=== PATIENT | male | born 1965 | race Caucasian/White ===

== ENCOUNTER 2020-05-25 10:46 | Emergency (ER) | payer BC, SELFPAY ==
[2020-05-25 11:00] VITALS: BP 137/95; PULSE 101; RESP 16; TEMP 37.3; O2SAT 95; BMI 27.8
--- NOTE | 2020-05-25 11:21 | HMH.EDUTC ---
[facility] [place] Clinical Impression: Exposure to COVID-19 virus Disposition: Home, Self-Care Condition on Discharge: Good Instructions: Preventing the Spread of Coronavirus Discharge Instructions Additional Instructions: Drink plenty of fluids. Take tylenol for pain or fever. Follow up with your regular doctor. GO TO THE ER FOR ANY WORSENING SYMPTOMS Referrals: Khari Her MD [Primary Care Provider] - Forms: Work/School Release Time of Disposition: 11:23 Medical Decision Making - Medical Records Medical records reviewed: No: I reviewed the patient's medical records. - Ladarius Inquiry Pt receiving controlled substance: No Vital Signs: 05/25/20 11:00 05/25/20 11:24 Temperature 99.1 F 99.1 F Temperature Source Oral Pulse Rate 101 H Pulse Rate [Right Brachial] 101 H Respiratory Rate 16 16 Blood Pressure 137/95 H Blood Pressure [Right Arm] 137/95 H Blood Pressure Mean [Right Arm] 109 Blood Pressure Source [Right Arm] Automatic Cuff Blood Pressure Position [Right Arm] Sitting 02 Sat by Pulse Oximetry 95 Oxygen Delivery Method Room Air Orders (Tests/Meds): ORDERS Category Date Time Status Covid-19 Nasal PCR Sendout [facility]uri Routine Lab 05/25/20 11:00 Received [facility] [place] H[place] - General Stated complaint: possible covid exposure Time Seen by Provider: 05/25/20 11:21 Mode of Arrival: Ambulatory Source of Information: Patient Limitations: No Limitations Description of Symptoms (Recalled from Triage Doc. by RN): PATIENT REQUESTING COVID TEST D/T POSSIBLE EXPOSURE; DENIES SYMPTOMS HEENT Symptoms (Recalled from RN notes): No Resp Symptoms (Recalled from RN notes): No Skin Symptoms (Recalled from RN notes): No MS Symptoms (Recalled from RN notes): No Functional Status (Recalled from RN notes): WNL - History of Present Illness Provider Complaint: He needs to be tested for covid due to being exposed. - Related Data Allergies Allergy/AdvReac Type Severity Reaction Status Date / Time No Known Allergies Allergy Verified 05/25/20 11:13 - Worker's Comp Is this a Worker's Comp case?: No [facility] History - Hepatitis A Screen Drug use history?: No High risk sexual behaviors?: No History of sexually transmitted infection?: No Currently employed?: No Childcare worker?: No Do you have indoor plumbing?: Yes Do you have electricity?: Yes Attestation statement:: This patient has been screened for Hepatitis A risk factors. I have reviewed the patient's past medical history: Yes - Social History Alcohol Intake: never Occupational Status: other ROS Obtained: Yes All systems reviewed & no additional complaints - Constitutional Constitutional: Reports system reviewed and no additional complaints, except as docu - Eyes Eyes: Reports system reviewed and no additional complaints, except as docu - ENT Ears, Nose, Mouth, and Throat: Reports system reviewed and no additional complaints, except as docu - Cardiovascular Cardiovascular: Reports system reviewed and no additional complaints, except as docu - Respiratory Respiratory: Yes system reviewed and no additional complaints, except as docu - Gastrointestinal Gastrointestingal: Reports: system reviewed and no additional complaints, except as docu Physical Exam - General General appearance: alert, in no apparent distress - Head Head exam: atraumatic, normocephalic, normal inspection - Eye Eye exam: Present: normal appearance, PERRL, EOMI - ENT ENT exam: Present: normal exam, normal oropharynx, mucous membranes moist, TM's normal bilaterally, normal external ear exam - Neck Neck exam: Present: normal inspection, full ROM, trachea midline. Absent: meningismus, lymphadenopathy - Chest Chest inspection: Present: normal inspection, symmetric chest wall rise. Absent: tenderness - Respiratory Respiratory exam: Present: normal lung sounds bilaterally. Absent: respiratory distress - Cardiovascular Cardiovasc
[2020-05-25 11:24] VITALS: BP 137/95; PULSE 101; RESP 16; TEMP 37.3; O2SAT 95
[2020-05-26 13:39] LABS: Covid-19 Nasal PCR Sendout Lex NOT DETECTED
== END 2020-05-25 11:26 | disposition home or self-care (01) ==
PROVIDERS: Emergency Provider Nurse Practitioner Family; PCP Internal Medicine
DX: Z20.828 Contact with and (suspected) exposure to other viral communicable diseases (principal)
CPT/HCPCS: 99201; U0004

== ENCOUNTER 2020-06-04 11:32 | Emergency (ER) | payer BC, SELFPAY ==
--- NOTE | 2020-06-04 12:09 | HMH.EDUTC ---
[facility] [place] Disposition Clinical Impression: Exposure to COVID-19 virus Disposition: Home, Self-Care Condition on Discharge: Good Instructions: Preventing the Spread of Coronavirus Discharge Instructions Additional Instructions: Drink plenty of fluids. Take tylenol for pain or fever. Take the medications as directed. Follow up with your regular doctor. GO TO THE ER FOR ANY WORSENING SYMPTOMS Don't start the azithromycin unless you start getting sick. Prescriptions: Ondansetron [Zofran 4mg ODT] 4 mg PO Q8HP PRN #9 tab.rapdis PRN Reason: Nausea Transmission Status: Received by [facility] # Azithromycin [Z-Holden 250mg Tab*] 250 mg PO UD DOSE PK #6 tab Transmission Status: Received by [facility] # Referrals: Khari Her MD [Primary Care Provider] - Time of Disposition: 12:27 Medical Decision Making - Medical Records Medical records reviewed: No: I reviewed the patient's medical records. - Ladarius Inquiry Pt receiving controlled substance: No Vital Signs: 06/04/20 12:13 06/04/20 12:33 Temperature 98.3 F 98.3 F Temperature Source Oral Oral Pulse Rate 117 H Pulse Rate [Radial] 117 H Respiratory Rate 14 14 Blood Pressure 129/99 H Blood Pressure [Right Arm] 129/99 H Blood Pressure Mean [Right Arm] 109 Blood Pressure Source Automatic Cuff Blood Pressure Source [Right Arm] Automatic Cuff Blood Pressure Position Sitting Blood Pressure Position [Right Arm] Sitting 02 Sat by Pulse Oximetry 94 L Oxygen Delivery Method Room Air Room Air Orders (Tests/Meds): ORDERS Category Date Time Status Covid-19 Nasal PCR Sendout Amauri Stat Lab 06/04/20 12:[address] [facility] [place] HPI - General Stated complaint: possible covid exposure Time Seen by Provider: 06/04/20 12:09 - History of Present Illness Provider Complaint: He was exposed to covid last week. He denies any symptoms, but he is worried about it becaues he has a history of asthma and getting bad bronchitis when he does get sick. - Related Data Previous Rx's Medication Instructions Recorded Azithromycin [Z-Holden 250mg Tab*] 250 mg PO UD DOSE PK #6 tab 06/04/20 Ondansetron [Zofran 4mg ODT] 4 mg PO Q8HP PRN #9 tab.rapdis 06/04/20 Allergies Allergy/AdvReac Type Severity Reaction Status Date / Time No Known Allergies Allergy Verified 05/25/20 11:13 [facility] History - Hepatitis A Screen Attestation statement:: This patient has been screened for Hepatitis A risk factors. I have reviewed the patient's past medical history: Yes - Social History Alcohol Intake: never Occupational Status: other ROS Obtained: Yes All systems reviewed & no additional complaints - Constitutional Constitutional: Reports system reviewed and no additional complaints, except as docu - Eyes Eyes: Reports system reviewed and no additional complaints, except as docu - ENT Ears, Nose, Mouth, and Throat: Reports system reviewed and no additional complaints, except as docu - Cardiovascular Cardiovascular: Reports system reviewed and no additional complaints, except as docu - Respiratory Respiratory: Yes system reviewed and no additional complaints, except as docu - Gastrointestinal Gastrointestingal: Reports: system reviewed and no additional complaints, except as docu Physical Exam - General General appearance: alert, in no apparent distress - Head Head exam: atraumatic, normocephalic, normal inspection - Eye Eye exam: Present: normal appearance, PERRL, EOMI - ENT ENT exam: Present: normal exam, normal oropharynx, mucous membranes moist, TM's normal bilaterally, normal external ear exam - Neck Neck exam: Present: normal inspection, full ROM, trachea midline. Absent: meningismus, lymphadenopathy - Chest Chest inspection: Present: normal inspection, symmetric chest wall rise. Absent: tenderness - Respiratory Respiratory exam: Present: normal lung sounds bilaterally. Absent: respir
[2020-06-04 12:13] VITALS: BP 129/99; PULSE 117; RESP 14; TEMP 36.8; O2SAT 94; BMI 27.8
[2020-06-04 12:33] VITALS: BP 129/99; PULSE 117; RESP 14; TEMP 36.8; O2SAT 94
[2020-06-05 14:42] LABS: Covid-19 Nasal PCR Sendout Lex NOT DETECTED
== END 2020-06-04 12:34 | disposition home or self-care (01) ==
PROVIDERS: Emergency Provider Nurse Practitioner Family; PCP Internal Medicine
DX: Z20.828 Contact with and (suspected) exposure to other viral communicable diseases (principal); J45.909 Unspecified asthma, uncomplicated
CPT/HCPCS: 99201; U0004

== ENCOUNTER → 2021-08-29 10:27 | Outpatient (CLI) | payer BC, SELFPAY ==
[2021-08-29 11:20] LABS: Hematocrit 52.2 % (42.0-52.0); Mean Corpuscular HGB Conc 32.6 g/dL (31.8-35.4); Mean Corpuscular Hemoglobin 34.8 pg (27.0-31.2); Mean Corpuscular Volume 106.9 fl (80-94); Platelet Count 348 K/mm3 (142-424); Red Blood Count 4.88 M/mm3 (4.60-6.20); Red Cell Distribution Width 13.6 % (11.5-17.5); White Blood Count 7.9 K/mm3 (4.8-10.8)
[2021-08-29 12:23] LABS: Alanine Aminotransferase 41 U/L (12-78); Albumin Level 4.3 g/dl (3.5-5.0); Albumin/Globulin Ratio 1.9 (1.1-1.8); Alkaline Phosphatase 74 U/L (38-126); Anion Gap 9.6 mEq/L (5-15); Aspartate Amino Transferase 40 U/L (17-59); Bilirubin,Total 0.7 mg/dl (0.2-1.3); Blood Urea Nitrogen 15 mg/dl (9-20); Calcium 9.7 mg/dl (8.4-10.2); Carbon Dioxide 32 mmol/L (22.0-30.0); Chloride 100 mmol/L (98-107); Chol/HDL Ratio 5.5 (1-3.5); Cholesterol 208 mg/dl (140-200); Estimated Glomerular Filt Rate 69 ml/min (>60); GFR (African American) 83 ML/MIN (>60); Globulin 2.3 g/dL (1.3-3.2); Glucose 105 mg/dl (74-100); HDL Cholesterol 38 mg/dl (40-60); Potassium 4.6 mmoL/L (3.5-5.1); Sodium 137 mmol/L (136-145); Total Protein,Serum 6.6 g/dl (6.3-8.2); Triglycerides 328 mg/dl (30-150); VLDL Cholesterol 66 mg/dL (0-40)
[2021-08-29 12:34] LABS: Direct LDL Cholesterol 130.75 mg/dL (100-129)
[2021-08-30 11:26] LABS: Testosterone,Total 450 ng/dL (264-916)
== END ==
PROVIDERS: PCP Internal Medicine; Visit Provider Internal Medicine
DX: Z00.00 Encounter for general adult medical examination without abnormal findings (principal); I10 Essential (primary) hypertension; E78.2 Mixed hyperlipidemia
CPT/HCPCS: 36415; 80053; 80061; 84403; 85014; 85018; 85048; 85049

== ENCOUNTER 2024-06-02 10:34 | Outpatient (CLI) | payer BC, SELFPAY ==
--- NOTE | 2024-06-02 10:56 | ECG_ITS ---
APPROVED REPORT Exam: Resting ECG HR:74 bpm ECG Measurements Heart Rate 74 AXES UT 179 P 62 QRSd 96 QRS 46 QT 377 T 68 QTc 404 Conclusion SINUS RHYTHM ABNORMAL ECG UNCONFIRMED REPORT Electronically signed by : Ralph Crabtree MD 06/03/2024 17:01:06
[2024-06-02 11:20] LABS: Basophils # 0.1 K/mm3 (0-0.2); Basophils % 1.4 % (0.1-2.0); Eosinophils # 0.9 K/mm3 (0.0-0.4); Eosinophils % 11.7 % (0.1-12.0); Hematocrit 44.8 % (42.0-52.0); Hemoglobin 16.1 g/dL (14.1-18.0); Lymphocytes # 2.1 K/mm3 (0.7-4.5); Lymphocytes % 26.5 % (10-50); Mean Corpuscular Hemoglobin 36.2 pg (27.0-31.2); Mean Corpuscular Volume 100.5 fl (80-94); Mean Platelet Volume 7.4 fl (7.4-10.4); Monocytes # 0.8 K/mm3 (0.1-1.0); Neutrophils % 50.4 % (37.0-80.0); Platelet Count 305 K/mm3 (142-424); Red Blood Count 4.46 M/mm3 (4.60-6.20); Red Cell Distribution Width 14.2 % (11.5-17.5); White Blood Count 7.9 K/mm3 (4.8-10.8)
[2024-06-02 11:29] LABS: Alanine Aminotransferase 59 U/L (12-78); Albumin Level 4.1 g/dl (3.5-5.0); Alkaline Phosphatase 57 U/L (38-126); Anion Gap 11.1 mEq/L (5-15); Aspartate Amino Transferase 37 U/L (17-59); Bilirubin,Total 0.8 mg/dl (0.2-1.3); Blood Urea Nitrogen 16 mg/dl (9-20); Calcium 9.6 mg/dl (8.4-10.2); Carbon Dioxide 29 mmol/L (22.0-30.0); Chloride 104 mmol/L (98-107); Estimated Glomerular Filt Rate 69 ml/min (>60); GFR (African American) 83 ML/MIN (>60); Globulin 2.1 g/dL (1.3-3.2); Glucose 99 mg/dl (74-100); Potassium 4.1 mmoL/L (3.5-5.1); Sodium 140 mmol/L (136-145); Total Protein,Serum 6.2 g/dl (6.3-8.2)
== END 2024-06-02 23:59 | disposition home or self-care (01) ==
PROVIDERS: PCP Internal Medicine; Visit Provider Otolaryngology
DX: Z01.812 Encounter for preprocedural laboratory examination (principal); Z01.818 Encounter for other preprocedural examination
CPT/HCPCS: 36415; 80053; 85025; 93005

== ENCOUNTER 2024-10-01 14:57 | Emergency (ER) | payer BC, SELFPAY ==
[2024-10-01 15:02] VITALS: BP 152/94; PULSE 103; O2SAT 94
[2024-10-01 15:04] VITALS: BP 152/94; PULSE 104; RESP 22; TEMP 36.6; O2SAT 91; BMI 31.4
--- NOTE | 2024-10-01 15:07 | ED_ITS ---
<Statement entered by Huma Arauz DO - 10/01/24 22:43> I was consulted by the BEENA, and we discussed the complexity of the problems being addressed. I approved the treatment and management plan for this patient's care in the emergency department, thus performing a substantive portion of the medical decision making. Huma Arauz DO Discharge Plan Disposition Patient Disposition: Home, Self-Care Condition: Good Prescriptions Prescriptions: New prednisone 20 mg tablet 40 mg PO DAILY 5 Days Qty: 10 0RF azithromycin 250 mg tablet See Rx Instructions .ROUTE .COMPLEX Qty: 6 0RF Rx Instructions: For 250 mg dose pack: take 500 mg today (day 1), then 250 mg for 4 days (days 2-5) No Action albuterol sulfate 2.5 mg /3 mL (0.083 %) solution for nebulization 2.5 mg continuous nebulization NEEDED PRN (Reason: Breathing Problems) Patient Comments: INHALE THE CONTENTS OF 1 VIAL VIA NEBULIZER EVERY 6 HOURS NEEDED atorvastatin 10 mg tablet 10 mg PO DAILY Patient Comments: TAKE 1 TABLET BY MOUTH EVERY EVENING fluticasone propion-salmeterol [Wixela Inhub] 500-50 mcg/dose blister with device 500 inh INHALATION DAILY albuterol sulfate 90 mcg/actuation HFA aerosol inhaler 90 mcg INHALATION DAILY Patient Comments: INHALE 2 PUFFS BY MOUTH FOUR TIMES DAILY losartan 100 mg tablet 100 mg PO DAILY fluticasone propionate 50 mcg/actuation spray,suspension 50 mcg INTRANASAL DAILY Patient Comments: SHAKE LIQUID AND USE 1 SPRAY IN EACH NOSTRIL EVERY DAY levocetirizine 5 mg tablet 5 mg PO DAILY Patient Comments: TAKE 1 TABLET BY MOUTH EVERY DAY Referrals Follow up/Referrals: Khari Her MD [Primary Care Provider] - See instructions Clinical Impressions Clinical Impression: Influenza A, Acute exacerbation of chronic obstructive pulmonary disease (COPD) Instructions Patient Instructions: DI for Chronic Obstructive Pulmonary Disease, DI for Influenza -- Adult Print Language Print Language: Kosovan Discharge ED Provider: Huma Arauz General Adult HPI General Chief complaint: Shortness of Breath/Dyspnea Stated complaint: SOA Time Seen by Provider: 10/01/24 15:01 Mode of Arrival: Ambulatory Source of Information: Patient Limitations: No Limitations History of Present Illness HPI narrative: 59-year-old male presents to the emergency department with 4 to 5-day history of cough, that is nonproductive, fatigue, congestion, shortness of air, no known sick exposure, patient admits to some chest tightness/pain, worse after coughing, denies any abdominal pain, nausea vomiting constipation diarrhea, no melena no hematochezia no hematemesis, no hemoptysis, patient denies any urinary type symptomatology. Patient has other past medical history consistent with COPD, with as needed nasal cannula, mostly at night, other past medical history consistent with current everyday smoker, hyperlipidemia, hypertension, no other history of substance use/abuse. Initial triage vitals notable for tachycardia, and oxygen saturation 91%, placed on 2 L nasal cannula improved to 95 to 96%. Onset (ago): day(s) Related Data Home Medications ?Medication ?Instructions ?Recorded ?Confirmed albuterol sulfate 2.5 mg/3 mL 2.5 mg continuous nebulization 10/01/24 10/01/24 (0.083 %) solution for nebulization NEEDED PRN Breathing Problems albuterol sulfate 90 mcg/actuation 90 mcg inhalation DAILY 10/01/24 10/01/24 aerosol inhaler atorvastatin 10 mg tablet 10 mg PO DAILY 10/01/24 10/01/24 fluticasone 500 mcg-salmeterol 50 500 inh inhalation DAILY 10/01/24 10/01/24 mcg/dose blistr powdr for inhalation (Wixela Inhub) fluticasone propionate 50 50 mcg intranasal DAILY 10/01/24 10/01/24 mcg/actuation nasal spray,suspension levocetirizine 5 mg tablet 5 mg PO DAILY 10/01/24 10/01/24 losartan 100 mg tablet 100 mg PO DAILY 10/01/24 10/01/24 Previous Rx's ?Medication ?Instructions ?Recorded azithromycin 250 mg tablet See Rx Instructions PO .COMPLEX #6 10/01/24 tabs prednisone 20 mg tablet 40 mg (2 x 20 mg) PO DAILY 5 days 10/01/24 #10 tabs Allergies Allergy/AdvReac Type Severity Reaction Status Date / Time No Known Allergies Allergy Verified 10/01/24 15:10 [facility] Disclaimer: The information contained in this section may have been updated after the patient was seen, as this information can be updated by other users. Social History Smoking Status: Current every day smoker alcohol intake: never current occupational status: employed Travel in the last 8 weeks: None Have you lived/traveled outside US in past 30 days?: No Contact w/someone who lives/traveled outside US past 30 days?: No Exposure to someone with infectious disease in past 14 days?: No Do you have a fever (greater than 100.4 F or 38 C)?: No Have you tested positive for COVID-19: No Exposed to someone with COVID-19 in past 14 days?: No Do you have a sore throat?: No Do you have a cough?: No Do you have any weakness?: No Do you have any diarrhea?: No Are you experiencing any unusual bleeding?: No Do you have any muscle aches/pain?: No Do you have any abdominal pain?: No Are you experiencing loss of taste or smell?: No ROS Obtained: Yes All systems reviewed & no additional complaints except as documented Physical Exam General General appearance: alert and in no apparent distress Head Head exam: atraumatic and normocephalic Eye Eye exam: Present PERRL and EOMI ENT ENT exam: Present mucous membranes moist Neck Neck exam: Present normal inspection Chest Chest inspection: Present normal inspection and symmetric chest wall rise Respiratory Respiratory exam: Present normal lung sounds bilaterally and other (Some mild conversational dyspnea, no air hunger, no real tachypnea, no Rales, crackles, no rhonchi); Absent respiratory distress, wheezes or stridor Cardiovascular Cardiovascular exam: Present regular rate and normal rhythm Abdominal Exam Abdominal exam: Present soft; Absent tenderness, guarding, rebound, rigidity or organomegaly Extremities Exam Extremities exam: Present normal inspection Neurological Exam Neurological exam: Present alert and oriented X3 Psychiatric Psychiatric exam: Present normal affect Skin Skin exam: Present warm and dry Medical Decision Making Medical Records Medical records reviewed: Yes I reviewed the patient's medical records. Screening: Per USPSTF and CDC recommendations, given the prevalence of disease in our region, it is our hospital?s policy to screen for HIV and viral Hepatitis for all patients aged 18 and over and those with ongoing risk factors. Ladarius Inquiry Pt receiving controlled substance: No Ladarius was queried for this patient: No Vital Signs: 10/01/24 15:02 10/01/24 15:04 10/01/24 15:30 Temperature 97.9 F Temperature Source Oral Pulse Rate 103 H 100 H Pulse Rate [Left] 104 H Respiratory Rate 22 Blood Pressure 152/94 H 140/97 H Blood Pressure [Right Arm] 152/94 H Blood Pressure Mean 117 111 Blood Pressure Mean [Right Arm] 113 Blood Pressure Source [Right Arm] Automatic Cuff Blood Pressure Position [Right Arm] Sitting 02 Sat by Pulse Oximetry 94 L 91 L 94 L Oxygen Delivery Method Room Air 10/01/24 16:00 10/01/24 16:30 Temperature Temperature Source Pulse Rate 100 H 95 H Pulse Rate [Left] Respiratory Rate Blood Pressure 119/90 127/91 H Blood Pressure [Right Arm] Blood Pressure Mean 99 106 Blood Pressure Mean [Right Arm] Blood Pressure Source [Right Arm] Blood Pressure Position [Right Arm] 02 Sat by Pulse Oximetry 94 L 94 L Oxygen Delivery Method Lab Data Lab results reviewed: Yes I reviewed the patient's lab results. Lab Results 10/01/24 15:05: WBC 9.0, RBC 4.96, Hgb 17.2, Hct 50.7, MCV 102.2 H, MCH 34.7 H, MCHC 33.9, RDW 13.1, Plt Count 263, MPV 9.3, Neut % (Auto) 78.4, Lymph % (Auto) 7.2 L, [place] % (Auto) 12.6 H, Eos % (Auto) 1.2, Baso % (Auto) 0.3, Neut # (Auto) 7.1, Lymph # (Auto) 0.7, [place] # (Auto) 1.1 H, Eos # (Auto) 0.1, Baso # (Auto) 0.0, PT 11.1, INR 0.99, D-Dimer 0.27, VBG pH 7.32, VBG pCO2 48.0, VBG pO2 36.1, VBG HCO3 24.0, VBG Total CO2 25.4, VBG O2 Saturation 67.0, VBG Base Excess -2.2, VBG Lactic Acid 2.4 H, Sodium 134 L, Potassium 4.3, Chloride 101, Carbon Dioxide 25, Anion Gap 12.3, BUN 17, Creatinine 0.90, Estimated Creat Clear 126, Estimated GFR 86, Est GFR ( Amer) 104, Glucose 131 H, Calcium 9.4, Magnesium 2.0, Total Bilirubin 0.9, AST 44, ALT 48, Alkaline Phosphatase 74, Total Creatine Kinase 104, Troponin I < 0.01, NT-Pro-B Natriuret Pep 26.8, Total Protein 7.2, Albumin 4.8, Globulin 2.4, Albumin/Globulin Ratio 2.0 H, Lipase 59, SARS-CoV-2 (PCR) Not detected, HCV Ab EDUAR w/Rflx PCR Qn Negative, HIV Ag/Ab Combo Qual Negative, Influenza A Untype (PCR) Detected A, Influenza Type B (PCR) Not detected 10/01/24 15:05 10/01/24 15:05 Orders (Tests/Meds): ED MEDICATIONS Discontinued Medications Generic Name Dose Route Start Last Admin Trade Name Freq PRN Reason Stop Dose Admin Albuterol/Ipratropium 6 ml 10/01/24 16:57 10/01/24 17:21 Ipratropium/Albuterol 3 Ml Neb IH 10/01/24 16:58 6 ml ONCE ONE Administration Methylprednisolone Sodium Succinate 125 mg 10/01/24 16:57 10/01/24 17:21 Methylprednisolone Sod Succ 125mg Vial IV 10/01/24 16:58 125 mg ONCE ONE Administration ORDERS Category Date Time Status XR chest portable Stat Exams 10/01/24 15:12 Completed CK [Creatine Kinase] Stat Lab 10/01/24 15:05 Completed Complete Blood Count Auto Diff Stat Lab 10/01/24 15:05 Completed Comprehensive Metabolic Panel Stat Lab 10/01/24 15:05 Completed D-Dimer Stat Lab 10/01/24 15:05 Completed HIV Combo Stat Lab 10/01/24 15:05 Completed Hepatitis C Ab Qual. W/ RFX Stat Lab 10/01/24 15:05 Completed Lipase Stat Lab 10/01/24 15:05 Completed Magnesium Stat Lab 10/01/24 15:05 Completed NT Pro Brain Natriuretic Pep. Stat Lab 10/01/24 15:05 Completed PT INR [Prothrombin Time INR] Stat Lab 10/01/24 15:05 Completed Rapid PCR Covid and Flu A/B Stat Lab 10/01/24 15:05 Completed Troponin I Q3H Lab 10/01/24 18:15 Ordered Troponin I Q3H Lab 10/01/24 21:15 Ordered Troponin I Stat Lab 10/01/24 15:05 Completed VBG [Venous Blood Gas] Stat RT 10/01/24 15:05 Completed Medical Decision Narrative: 59-year-old male presents to the emerged part with shortness of breath, cough congestion, differential diagnose, not limited to, COPD exacerbation, acute/new onset CHF, ACS, cardiac arrhythmia, electrolyte disturbance, acute bronchitis, pneumonia, other URI, pneumothorax. Will obtain basic laboratory studies, creatinine kinase, D-dimer, lactic acid level, lipase magnesium level proBNP PT/INR, troponin, EKG, chest x-ray, VBG, obtain rapid antigen swabs for COVID-19 and influenza. CBC is notable for elevated MCV 102.2, which is chronic VBG is notable for normal pH, venous lactic acid level elevated at 2.4, bicarb within normal limits, pO2 and pCO2 within normal limits D-dimer 0.27, negative for VTE Coags within normal limit Patient is negative for COVID-19, positive for influenza A, negative for influenza B. CMP is notable for normal troponin, normal proBNP, lipase within normal limits. I reviewed the patient's chest x-ray along the corresponding radiologic report, no acute cardiopulmonary process. Will give 6 mL DuoNeb per RT, 125 mg methylprednisone will be given IV. Oxygen saturation improved, he has no other acute complaints, he has influenza, in the setting of COPD, recommend follow-up with [facility] provider other providers as directed, I will prescribe short course of azithromycin for COPD exacerbation as well as prednisone 40 mg p.o. for 5 days. Patient voiced understand agree with current treatment plan/discharge plan. Return precautions were given. Critical Care Critical Care Time Critical Care Time: No
--- NOTE | 2024-10-01 15:12 | XR_ITS ---
FINAL REPORT CLINICAL HISTORY: SOB, CP COMPARISON: None FINDINGS: A single view of the chest was obtained. The patient is scanned in lordotic positioning. The heart size is normal. The mediastinum is normal. There is scarring noted at the lung bases. There is no focal infiltrate or edema. There are no pleural effusions. There is no pneumothorax. There is no osseous abnormality. IMPRESSION: No acute cardiopulmonary process Reviewed, Interpreted and Dictated by Camacho Mancini MD Transcribed by Julisa Hayes Authenticated and . [facility]
[2024-10-01 15:17] LABS: Basophils % 0.3 % (0.1-2.0); Coronavirus 19, PCR Not Detected (NotDetected); Eosinophils # 0.1 K/mm3 (0.0-0.4); Eosinophils % 1.2 % (0.1-12.0); Hematocrit 50.7 % (42.0-52.0); Hemoglobin 17.2 g/dL (14.1-18.0); Influenza B, PCR Not Detected (NotDetected); Lymphocytes # 0.7 K/mm3 (0.7-4.5); Lymphocytes % 7.2 % (10-50); Mean Corpuscular HGB Conc 33.9 g/dL (31.8-35.4); Mean Corpuscular Hemoglobin 34.7 pg (27.0-31.2); Mean Corpuscular Volume 102.2 fl (80-94); Mean Platelet Volume 9.3 fl (7.4-10.4); Monocytes # 1.1 K/mm3 (0.1-1.0); Monocytes % 12.6 % (1.7-9.3); Neutrophils # 7.1 K/mm3 (1.8-7.8); Neutrophils % 78.4 % (37.0-80.0); Platelet Count 263 K/mm3 (142-424); Red Blood Count 4.96 M/mm3 (4.60-6.20); Red Cell Distribution Width 13.1 % (11.5-17.5)
--- NOTE | 2024-10-01 15:18 | PC.NURSE ---
Radiology at bedside for chest x-ray
[2024-10-01 15:21] LABS: Lactate Venous 2.4 mmol/L (0.4-2.0); VBG Base Excess -2.2 mmol/L (-2.4-2.3); VBG PH 7.32 mmol/L (7.31-7.41); VBG PO2 36.1 mmol/L (28-40); VBG Total CO2 25.4 mmol/L (23-27)
[2024-10-01 15:27] LABS: Creatine Kinase 104 U/L (55-170); INR 0.99 (0.9-1.1); Lipase 59 U/L (23-300); Prothrombin Time 11.1 seconds (10.1-12.5)
[2024-10-01 15:30] VITALS: BP 140/97; PULSE 100; O2SAT 94
[2024-10-01 15:37] LABS: D-Dimer 0.27 ug/mL (0.0-0.5)
[2024-10-01 15:39] LABS: NT Pro Brain Natriuretic Pep. 26.8 pg/mL (0-125)
[2024-10-01 15:40] LABS: Troponin I < 0.01 ng/ml (0.00-0.034)
--- NOTE | 2024-10-01 15:49 | ECG_ITS ---
APPROVED REPORT Exam: Resting ECG HR:95 bpm ECG Measurements Heart Rate 95 AXES AK 182 P 70 QRSd 93 QRS 34 QT 337 T 77 QTc 390 Conclusion SINUS RHYTHM Electronically signed by : ROLDAN CONTRERAS, 10/01/2024 23:13:18
[2024-10-01 15:51] LABS: Alanine Aminotransferase 48 U/L (12-78); Albumin Level 4.8 g/dl (3.5-5.0); Alkaline Phosphatase 74 U/L (38-126); Anion Gap 12.3 mEq/L (5-15); Aspartate Amino Transferase 44 U/L (17-59); Bilirubin,Total 0.9 mg/dl (0.2-1.3); Blood Urea Nitrogen 17 mg/dl (9-20); Calcium 9.4 mg/dl (8.4-10.2); Carbon Dioxide 25 mmol/L (22.0-30.0); Chloride 101 mmol/L (98-107); Creatinine Clearance Estimated 126 mL/min (50-200); Estimated Glomerular Filt Rate 86 ml/min (>60); GFR (African American) 104 ML/MIN (>60); Globulin 2.4 g/dL (1.3-3.2); Glucose 131 mg/dl (74-100); Influenza A, PCR Detected (NotDetected); Potassium 4.3 mmoL/L (3.5-5.1); Sodium 134 mmol/L (136-145); Total Protein,Serum 7.2 g/dl (6.3-8.2)
[2024-10-01 16:00] VITALS: BP 119/90; PULSE 100; O2SAT 94
[2024-10-01 16:24] LABS: HIV Combo NEGATIVE (Negative)
[2024-10-01 16:30] VITALS: BP 127/91; PULSE 95; O2SAT 94
[2024-10-01 16:32] LABS: Hepatitis C Ab Qual. W/ RFX NEGATIVE (Negative)
[2024-10-01] MEDS: METHYLPREDNISOLONE SOD SUCC 125MG VIAL 125 MG IV (17:21)
[2024-10-01] MEDS: IPRATROPIUM/ALBUTEROL 3 ML NEB 6 ML IH (17:21)
[2024-10-01 18:01] VITALS: BP 118/72; PULSE 85; RESP 18; TEMP 36.6; O2SAT 95
[2024-10-01 19:22] LABS: Reflex Lactic Add Lactic Reflex
== END 2024-10-01 18:03 | disposition home or self-care (01) ==
PROVIDERS: Physician Assistant; Emergency Provider Emergency Medicine; PCP Internal Medicine
DX: J44.1 Chronic obstructive pulmonary disease with (acute) exacerbation (principal); J10.1 Influenza due to other identified influenza virus with other respiratory manifestations; R06.02 Shortness of breath; R05.9 Cough, unspecified; R53.83 Other fatigue; R09.81 Nasal congestion; R07.89 Other chest pain; Z72.0 Tobacco use
CPT/HCPCS: 71045; 80053; 82550; 82803; 83690; 83735; 83880; 84484; 85025; 85378; 85610; 86803; 87389; 87636; 93005; 96374; 99284; J2919; J7620

== ENCOUNTER 2025-05-28 10:16 | Outpatient (CLI) | payer BC, SELFPAY ==
--- OUTSIDE RECORDS SUMMARY | 2016-04-06 07:59 | XMS_ITS | Encounter Summary ---
[facility] Address [address] [place] [address] Care Team Providers Care C Unix Developer Name Role Phone Khari Her MD Primary Care Provider [phone] Encounter Details Date Type Department Care Team (Late st Contact Info) Description 04/06/2016 8:59 AM EDT Hospital Encounter [facility] [place] [address] Social History Tobacco Use Types Packs/Day Years Used Date Smoking Tobacco: Every Day Cigarettes Comments:Also e-cigarretes Abuse Screen Answer Date Recorded Unsafe at Home or Work/School Not on file Feels Threatened by Someone? Not on file 03/2023 Does Anyone Keep You from Co ntacting Others or Doint Things Outside the Home? Not on file 04/30/2023 Physical Sign of Abuse Present Not on file 1 Housing Stability Answer Date Recorded Current Living Arrangements Not on file 03/2023 Potentially Unsafe Housing Conditions Not on azar e 04/30/2023 Family and Community Support Answer Sha e Recorded Help with Day-to-Day Activities Not on file 04/30/2023 Lonely or Isolated Not on file 04/30/2023 Employment Answer Date Recorded Do you want help finding or keeping work or a leonid b? Not on file 04/30/2023 Disabilities Answer Date Recorded Concentrating, Remembering, or Making Decisions Difficulty Not on file 04/30/2023 Doing Errands Independently Difficulty Not on fi le 04/30/2023 Education Answer Date Recorded Help with school or training? Not on file Preferred Language Not on file 04/30/2023 Sex and Gender Information Value Date Recorded Sex Assigned at Not on file Legal Sex Male 11:22 AM EDT Gender Identity Not on file Sexual Orientation Not on file documented as of this encounter Plan of Treatment Not on file documented as of this encounter Procedures Procedure Name Priority Date/Time Associated Diagnosis Comments XR CHEST PA AND LATERAL Routine 04/06/2016 9:06 AM EDT Cough documented in this encounter Results * XR chest pa and lateral (04/06/2016 9:06 AM EDT) Narrative Molly Flores, EDITH - 04/06/2016 9:06 AM EDT Results sent to clinical pharmacy coordinator, signed report will be scanned into [employer] once available. Please see performing physicians notes. us Manoj Fuller MD IMG DIAGNOSTIC IMAGING ORDERABL ES Final Result documented in this encounter Visit Diagnoses Not on filedocumented in this encounter Care Teams C Unix Developer Relationship Specialty Start Date End Date Khari Her MD [address] [place] [address] PCP - General Pediatrics 04/06/16 documented as of this encounter
--- OUTSIDE RECORDS SUMMARY | 2025-05-28 10:24 | XMS_ITS | Clinical Summary ---
Author Organization [facility] Address [address] [place] [address] Care Team Providers Care Specialty Cook Name Role Phone Khari Her MD Primary Care Provider [phone] Allergies No known active allergies Medications PROAIR HFA 108 (90 BASE) MCG/ACT inhaler as needed. 1 6 Active albuterol (PROVENTIL) (2.5 MG/3ML) 0.083% nebulizer solution as needed. 0 6 Active omeprazole (PriLOSEC) 40 MG capsule as needed. 0 6 Active BREO ELLIPTA 100-25 MCG/INH aerosol powder daily. 1 6 Active atorvastatin (LIPITOR) 10 MG tablet daily. 1 6 Active losartan (COZAAR) 50 MG tablet daily. 0 6 Active montelukast (SINGULAIR) 10 MG tablet daily. 1 6 Active Chlorcyclizine-P seudoephed (STAHIST AD) 25-60 MG tablet Take by mouth daily. Active Umeclidinium [place] 62.5 MCG/INH aerosol powderIndication s:Chronic obstructive pulmonary disease, unspecified COPD type,Cough Inhale 1 inhaler 1 (one) time daily. 1 inhalation once a day 1 each 5 6 Active Active Problems Problem Noted Date Diagnosed Date Depression 03/30/2016 Hyperlipidemia 03/30/2016 Screening PSA (prostate specific antigen) HTN (hypertension) GERD (gastroesophageal reflux disease) Environmental and seasonal allergies Encounter for long-term (current) use of medicat ions Dyslipidemia Immunizations Immunization Administration Dates Next Due Influenza TIV (IM) 04/06/2016 Social History Tobacco Use Types Packs/Day Years Used Date Smoking Tobacco: Every Day Cigarettes Tobacco Cessation:Counseling Given: Yes Comments:Also e-cigarretes Abuse Screen Answer Date Recorded [...] on file Sexual Orientation Not on file Last Filed Vital Signs Vital Sign Reading Time Taken Comments Blood Pressure 128/88 04/06/2016 9:09 AM EDT Pulse 87 04/06/2016 9:09 AM EDT Temperature 37 C (98.6 F) 04/06/2016 9:09 AM EDT Respiratory Rate 16 04/06/2016 9:09 AM EDT Oxygen Saturation 96% 04/06/2016 9:09 AM EDT RA Inhaled Oxygen Concentration - - Weight 93 kg (205 lb) 04/06/2016 9:09 AM EDT Height 179.1 cm (5' 10.5 ) 04/06/2016 9:09 AM ED T Body Mass Index 29 04/06/2016 9:09 AM EDT Plan of Treatment Health Maintenance Due Date Last Done Comments LIPID PANEL 1964 COLOGUARD 2009 COLON CANCER SCREENING 5 YEA R SIGMOIDOSCOPY 2009 COLONOSCOPY 2009 [address] CANCER SCREENING 2009 CT COLONOGRAPHY 2009 FECAL OCCULT BLOOD TEST 2009 FIT Testing (1 year) 2009 Pneumococcal Vaccine 50+ (1 of 1 - PCV) 2014 TDAP/TD VACCINES (2 - Td or Tdap) 12/23/2020 011 ZOSTER VACCINE (2 of 2) 06/19/2022 04/24/2022 ANNUAL PHYSICAL 03/02/2023 HEPATITIS C SCREENING 03/02/2023 INFLUENZA VACCINE 02/20/2025 04/24/2022, , 04/28/2020, Additional history exists Insurance [employer] Member Subscriber Plan / Payer (Ef fective 2014-Present) Name:Andre Hatch Relation to Subscriber:Self Name:Andre Hatch Payer ID:[id number] (NAIC) Type:Not on file Address: [facility] [id number] [id number] Care Teams Specialty Cook Relationship Specialty Start Date End Date Khari Her MD [address] [place] [address] PCP - General Pediatrics 04/06/16
--- OUTSIDE RECORDS SUMMARY | 2025-05-28 10:25 | XMS_ITS | Data Portability ---
Author Organization JOAN Her MD, Main Office Address [address] [place] [address] Assessment No assessment recorded. Plan of Treatment Reminders Order Date Submit Date Provider Last Modified By Organization Details Last Modified Time Details Appointments ANNUAL EXAM 2024 03:40P Jordon Her MD Not available Not available Not available Lab lipid panel, blood 2023 024 [place] [id number] [facility], [facility] [address], [place], [address], 01/03/2024 12:02:01 TSH + free T4, serum 2023 024 [place] [id number] [facility], [address], [place], [address], 01/03/2024 12:02:01 CMP, serum or plasma 2023 024 SATISH [facility], [address], [place], [address], 09/08/2023 08:22:29 CBC w/ auto diff 2023 024 SATISH [facility], [address], [place], [address], 09/08/2023 08:22:28 PSA, serum or plasma 2023 024 SATISH [facility], [address], [place], [address], 09/08/2023 08:22:30 HbA1c (hemoglo bin A1c), blood 2023 024 SATISH [facility], [address], [place], [address], 09/08/2023 08:22:30 PSA, serum or plasma 2022 023 SATISH [facility], [address], [place], [address], 09/30/2022 09:16:42 CMP, serum or plasma 2022 023 SATISH [facility], [address], [place], [address], 09/30/2022 09:16:41 CBC w/ auto diff 2022 023 SATISH [facility], [address], [place], [address], 09/30/2022 09:16:40 urinalys is, complete 2022 023 SATISH [facility], [address], [place], [address], 10/18/2022 19:50:02 HbA1c (hemoglo bin A1c), blood 2022 023 SATISH [facility], [address], [place], [address], 09/30/2022 09:16:43 lipid panel, serum 2022 023 SATISH [facility], [address], [place], [address], 09/30/2022 09:16:42 urinalys is, complete 2021 022 [facility], [address], [place], [address], 09/03/2021 20:22:02 CMP, serum or plasma 2020 021 [place] [id number] [facility], [address], [place], [address], 08/19/2021 10:40:02 CBC w/ auto diff 2020 021 [email or web address], [address], [place], [address], 08/19/2021 10:40:02 lipid panel, serum 2020 021 [email or web address] [facility], [address], [place], [address], 08/30/2021 16:48:48 Referral otolaryn gologist referral 2023 024 SATISH Morrow MD, [address], [address], [place], [address], 09/24/2023 12:45:57 general surgeon referral 2020 021 [address] , [address], [place], [address], 05/26/2021 13:50:14 Procedures None recorded . Surgeries None recorded . Imaging LDCT, chest, for lung cancer screenin g [address] (Centralized Scheduling), [address], [place], [address], 05/08/2024 10:35:42 Medication Orders omega-3 acid ethyl esters 1 gram capsule 2023 024 [id number], [address], [id number], 09/14/2023 11:26:02 predniso ne 10 mg tablet [address] [id number], [address] [facility] [address] [place], [id number], 10/29/2024 14:15:08 nicotine 21 mg/24 hr daily transder mal patch [address] [facility] #[id number], [address] [facility] [address] [place], [id number], 09/14/2023 11:07:19 albutero l sulfate 2.5 mg/3 mL (0.083 %) solution for nebuliza tion 2020 021 [facility] #96123, [address] [facility] [address] [place], [id number], 05/26/2021 11:14:41 albutero l sulfate HFA 90 mcg/actu ation aerosol inhaler 2020 021 [facility]73740, [address] [facility] [address] [place], [id number], 05/26/2021 11:14:40 losartan 100 mg tablet [email or web address] [facility] #00614, [address] [facility] [address] [place], [id number], 10/10/2020 21:27:28 Patient TargetsNo targets recorded. Patient Instructions Encounter Date Encounter Id Patient Instructions Last Modified By Organization Details Last Modified Time 08/13/2020 [id number] 1. Increase Losartan to 100 mg by mouth daily. 2. Laboratory studies. 3. Continue respiratory medications. 4. Keep appointment for colonoscopy as scheduled. 5. Followup as scheduled and as needed. [email or web address] Not available 10/10/2020 22:18:20 05/26/2021 [id number] 1. Referral to Kostas Garcia Gen. surgery. 2. Follow up as needed. Not available 05/26/2021 11:14:48 09/02/2021 [id number] 1. Reviewed laboratory studies. 2. Add Hgb A1c to labs if possible. 3. Follow Mediterranean diet. Discussed similarities with diabetic diet and encouraged to limit Simple carbohydrates. Choose complex carbohydrates and olive oil as primary source of dietary fat. 4. Discussed importance of regular physical exercise activity. Start slowly with his COPD and gradually increase as tolerated. 5. Continue current medications. 6. He is up-to-date on colorectal cancer screening. 7. Followup in 6 months and as needed. Not available 09/11/2021 23:24:12 09/29/2022 [id number] high cholesterol : care instructions Not available 09/29/2022 13:45:42 1. Laboratory studies today. 2. Reviewed medication list and updated. 3. Strongly encouraged to stop smoking cigarettes. Severity of his COPD was emphasized. He has tried medications and nicotine delivery systems in the past. He has stopped for brief periods in the past and is seriously considering attempting complete abstinence again. 4. Schedule LDCT of chest due to his qualifying history of cigarette use for lung malignancy screening. In light Study performed at [facility]. 5. Encouraged to gradually reduce weight through healthy lifestyle habits. 6. Mediterranean diet discussed including symptoms suspect dietary choices. 7. Discussed recommendation of 150 min. of moderate intensity exercise weekly. With his respiratory disease recommended gradually increasing activity such as walking. 8. Recommend checking pneumonia vaccination status at pharmacy. Pneumovax 23 if not already given. 9. Overnight sleep study for evaluation of obstructive sleep apnea. 10. Followup in 6 months and as needed. Not available 10/18/2022 20:41:44 09/07/2023 [id number] 1. Laboratory studies. 2. Referral to ENT. 3. Strongly encouraged to continue efforts to stop smoking cigarettes. Start use of nicotine patches 21 mg/24 hour. Can reduce dose to 14 mg/24 hour when he feels dose can be tapered. Recommend remaining on the 21 mg patch for at least one month after he quits smoking completely. 4. Start generic Lovaza for his history of hypertriglyceridem ia. Repeat triglyceride level with labs today. 5. Refilled Prednisone. 6. Continue respiratory medications. Consider followup with sewage disposal worker. 7. Encouraged gradual weight loss and healthy lifestyle habits. Weight loss should help his respiratory disease as well. Encouraged to follow Mediterranean diet. Evaluate for diabetes with laboratory studies. 8. Gradually increase physical exercise activity. 9. RSV vaccination at age 59. Discussed vaccination and given RSV VIS. Also encouraged to have a flu vaccination in the home. Additional Covid-19 booster vaccinations at his discretion. Also check status of pneumonia vaccinations with pharmacy. Recommend pneumonia vaccinations with his respiratory disease. 10. Followup in 6 months and as needed. Not available 09/14/2023 11:17:30 Reason for Referral General Surgeon Referral for Lipoma of back Referring Physician: Khari Her, Internal Medicine, Encounter Date: 05/26/2021 [employer] Referral fo r Hearing loss Referring Physician: Khari Her, Internal Medicine, Encounter Date: 09/07/2023 Results Created Date Observation Date Name Description Value Unit Range Abnormal Flag Note LastModifiedBy Organization Detail LastModifiedTime 09/02/19 22 09/03/2021 URINA LYSIS , COMPL ETE specific gravity 1.020 1.005- 1.030 Not Available [facility] ([facility]) [address] [place], [address], 09/03/2021 08:19:35 09/02/19 22 09/03/2021 URINA LYSIS , COMPL ETE pH 8.5 5.0-7. 5 above high normal Not Available [facility] ([facility]) [address] [place], [address], 09/03/2021 08:19:35 09/02/19 22 09/03/2021 URINA LYSIS , COMPL ETE urine-color YELLOW yellow Not Available [facility]) [address] [place], [address], 09/03/2021 08:19:35 09/02/19 22 09/03/2021 URINA LYSIS , COMPL ETE appearance CLEAR clear Not Available [facility] ([facility]) [address] [place], [address], 09/03/2021 08:19:35 09/02/19 22 09/03/2021 URINA LYSIS , COMPL ETE WBC esterase NEGATI VE negati ve Not Available [facility] ([facility]) [address] [place], [address], 09/03/2021 08:19:35 09/02/19 22 09/03/2021 URINA LYSIS , COMPL ETE protein TRACE negati ve/tra ce Not Available [facility] ([facility]) [address] [place], [address], 09/03/2021 08:19:35 09/02/19 22 09/03/2021 URINA LYSIS , COMPL ETE glucose 2+ negati ve abnormal Not Available [facility] ([facility]) [address] [place], [address], 09/03/2021 08:19:35 09/02/19 22 09/03/2021 URINA LYSIS , COMPL ETE ketones NEGATI VE negati ve Not Available [facility] ([facility]) [address] [facility], [place], [address], 09/03/2021 08:19:35 09/02/19 22 09/03/2021 URINA LYSIS , COMPL ETE occult blood NEGATI VE negati ve Not Available [facility] ([facility]) [address] [place], [address], 09/03/2021 08:19:35 09/02/19 22 09/03/2021 URINA LYSIS , COMPL ETE bilirubin NEGATI VE negati ve Not Available [facility] ([facility]) [address] [place], [address], 09/03/2021 08:19:35 09/02/19 22 09/03/2021 URINA LYSIS , COMPL ETE urobilinogen ,semi-qn 1.0 mg/dL 0.2-1. 0 Not Available [facility] ([facility]) [address] [facility], [place], [address], 09/03/2021 08:19:35 09/02/19 22 09/03/2021 URINA LYSIS , COMPL ETE nitrite, urine NEGATI VE negati ve Not Available [facility] ([facility]) [address] [facility], [place], [address], 09/03/2021 08:19:35 09/02/19 22 09/03/2021 URINA LYSIS , COMPL ETE microscopic examination COMMEN T Micro scopi c follo ws if indic ated. Not Available [facility] ([facility]) [address] [facility], [place], [address], 09/03/2021 08:19:35 09/02/19 22 09/03/2021 URINA LYSIS , COMPL ETE microscopic examination SEE BELOW: Micro scopi c was indic ated and was perfo rmed. Not Available [facility] ([facility]) [address] [facility], [place], [address], 09/03/2021 08:19:35 09/02/19 22 09/03/2021 URINA LYSIS , COMPL ETE WBC 0-5 /hpf 0 - 5 Not Available [facility] ([facility]) [address] [facility], [place], [address], 09/03/2021 08:19:35 09/02/19 22 09/03/2021 URINA LYSIS , COMPL ETE RBC NONE SEEN /hpf 0 - 2 Not Available [facility] ([facility]) [address] [place], [address], 09/03/2021 08:19:35 09/02/19 22 09/03/2021 URINA LYSIS , COMPL ETE epithelial cells (non renal) NONE SEEN /hpf 0 - 10 Not Available [facility] ([facility]) [address] [place], [address], 09/03/2021 08:19:35 09/02/19 22 09/03/2021 URINA LYSIS , COMPL ETE epithelial cells (renal) JOB SITE SUPERINTENDENT Not Available [facility] ([facility]) [address] [facility], [place], [address], 09/03/2021 08:19:35 09/02/19 22 09/03/2021 URINA LYSIS , COMPL ETE casts NONE SEEN /lpf none seen Not Available [facility] ([facility]) [address] [facility], [place], [address], 09/03/2021 08:19:35 09/02/19 22 09/03/2021 URINA LYSIS , COMPL ETE cast type JOB SITE SUPERINTENDENT Not Available [facility] ([facility]) [address] [facility], [place], [address], 09/03/2021 08:19:35 09/02/19 22 09/03/2021 URINA LYSIS , COMPL ETE crystals JOB SITE SUPERINTENDENT Not Available [facility] ([facility]) [address] [facility], [place], [address], 09/03/2021 08:19:35 09/02/19 22 09/03/2021 URINA LYSIS , COMPL ETE crystal type JOB SITE SUPERINTENDENT Not Available [facility]) [address] [facility], [place], [address], 09/03/2021 08:19:35 09/02/19 22 09/03/2021 URINA LYSIS , COMPL ETE mucus threads JOB SITE SUPERINTENDENT Not Available [facility] ([facility]) [address] [facility], [place], [address], 09/03/2021 08:19:35 09/02/19 22 09/03/2021 URINA LYSIS , COMPL ETE bacteria NONE SEEN none seen/f ew Not Available [facility] ([facility]) [address] [facility], [place], [address], 09/03/2021 08:19:35 09/02/19 22 09/03/2021 URINA LYSIS , COMPL ETE yeast JOB SITE SUPERINTENDENT Not Available [facility] ([facility]) [address] [facility], [place], [address], 09/03/2021 08:19:35 09/02/19 22 09/03/2021 URINA LYSIS , COMPL ETE trichomonas JOB SITE SUPERINTENDENT Not Available [facility] ([facility]) [address] [facility], [place], [address], 09/03/2021 08:19:35 09/02/19 22 09/03/2021 URINA LYSIS , COMPL ETE comment JOB SITE SUPERINTENDENT Not Available [facility] ([facility]) [address] [facility], [place], [address], 09/03/2021 08:19:35 09/30/19 23 09/30/2022 CBC WITH DIFFE RENTI AL/PL ATELE T WBC 7.9 x10e3 /uL 3.4-10 .8 Not Available [facility] ([facility]) [address] [place], [address], 09/30/2022 09:16:40 09/30/19 23 09/30/2022 CBC WITH DIFFE RENTI AL/PL ATELE T RBC 4.99 x10e6 /uL 4.14-5 .80 Not Available [facility] ([facility]) [address] [facility], [place], [address], 09/30/2022 09:16:40 09/30/19 23 09/30/2022 CBC WITH DIFFE RENTI AL/PL ATELE T hemoglobin 17.4 g/dL 13.0-1 7.7 Not Available [facility] ([facility]) [address] [facility], [place], [address], 09/30/2022 09:16:40 09/30/19 23 09/30/2022 CBC WITH DIFFE RENTI AL/PL ATELE T hematocrit 49.6 % 37.5-5 1.0 Not Available [facility] ([facility]) [address] [facility], [place], [address], 09/30/2022 09:16:40 09/30/19 23 09/30/2022 CBC WITH DIFFE RENTI AL/PL ATELE T MCV 99 fL 79-97 above high normal Not Available [facility] ([facility]) [address] [facility], [place], [address], 09/30/2022 09:16:40 09/30/1909/30/2022 CBC WITH DIFFE RENTI AL/PL ATELE T MCH 34.9 pg 26.6-3 3.0 above high normal Not Available [facility] ([facility]) [address] [facility], [place], [address], 09/30/2022 09:16:40 09/30/1909/30/2022 CBC WITH DIFFE RENTI AL/PL ATELE T MCHC 35.1 g/dL 31.5-3 5.7 Not Available [facility] ([facility]) [address] [place], [address], 09/30/2022 09:16:40 09/30/1909/30/2022 CBC WITH DIFFE RENTI AL/PL ATELE T RDW 12.4 % 11.6-1 5.4 Not Available [facility] ([facility]) [address] [place], [address], 09/30/2022 09:16:40 09/30/1909/30/2022 CBC WITH DIFFE RENTI AL/PL ATELE T platelets 337 x10e3 /uL 150-45 0 Not Available [facility] ([facility]) [address] [facility], [place], [address], 09/30/2022 09:16:40 09/30/19 23 09/30/2022 CBC WITH DIFFE RENTI AL/PL ATELE T neutrophils 58 % not estab. Not Available [facility] ([facility]) [address] [facility], [place], [address], 09/30/2022 09:16:40 09/30/19 23 09/30/2022 CBC WITH DIFFE RENTI AL/PL ATELE T lymphs 25 % not estab. Not Available [facility] ([facility]) [address] [facility], [place], [address], 09/30/2022 09:16:40 09/30/19 23 09/30/2022 CBC WITH DIFFE RENTI AL/PL ATELE T monocytes 11 % not estab. Not Available [facility] ([facility]) [address] [facility], [place], [address], 09/30/2022 09:16:40 09/30/19 23 09/30/2022 CBC WITH DIFFE RENTI AL/PL ATELE T eos 4 % not estab. Not Available [facility] ([facility]) [address] [facility], [place], [address], 09/30/2022 09:16:40 09/30/19 23 09/30/2022 CBC WITH DIFFE RENTI AL/PL ATELE T basos 1 % not estab. Not Available [facility] ([facility]) [address] [facility], [place], [address], 09/30/2022 09:16:40 09/30/19 23 09/30/2022 CBC WITH DIFFE RENTI AL/PL ATELE T immature cells JOB SITE SUPERINTENDENT Not Available [facility] ([facility]) [address] [place], [address], 09/30/2022 09:16:40 09/30/19 23 09/30/2022 CBC WITH DIFFE RENTI AL/PL ATELE T neutrophils (absolute) 4.7 x10e3 /uL 1.4-7. 0 Not Available [facility] ([facility]) [address] [place], [address], 09/30/2022 09:16:40 09/30/19 23 09/30/2022 CBC WITH DIFFE RENTI AL/PL ATELE T lymphs (absolute) 2.0 x10e3 /uL 0.7-3. 1 Not Available [facility] ([facility]) [address] [facility], [place], [address], 09/30/2022 09:16:40 09/30/19 23 09/30/2022 CBC WITH DIFFE RENTI AL/PL ATELE T monocytes(ab solute) 0.9 x10e3 /uL 0.1-0. 9 Not Available [facility] ([facility]) [address] [facility], [place], [address], 09/30/2022 09:16:40 09/30/19 23 09/30/2022 CBC WITH DIFFE RENTI AL/PL ATELE T eos (absolute) 0.3 x10e3 /uL 0.0-0. 4 Not Available [facility] ([facility]) [address] [facility], [place], [address], 09/30/2022 09:16:40 09/30/19 23 09/30/2022 CBC WITH DIFFE RENTI AL/PL ATELE T baso (absolute) 0.1 x10e3 /uL 0.0-0. 2 Not Available [facility] ([facility]) [address] [facility], [place], [address], 09/30/2022 09:16:40 09/30/19 23 09/30/2022 CBC WITH DIFFE RENTI AL/PL ATELE T immature granulocytes 1 % not estab. Not Available [facility] ([facility]) [address] [facility], [place], [address], 09/30/2022 09:16:40 09/30/19 23 09/30/2022 CBC WITH DIFFE RENTI AL/PL ATELE T immature grans (abs) 0.1 x10e3 /uL 0.0-0. 1 Not Available [facility] ([facility]) [address], [place], [address], 09/30/2022 09:16:40 09/30/19 23 09/30/2022 CBC WITH DIFFE RENTI AL/PL ATELE T NRBC JOB SITE SUPERINTENDENT Not Available [facility] ([facility]) [address], [place], [address], 09/30/2022 09:16:40 09/30/19 23 09/30/2022 CBC WITH DIFFE RENTI AL/PL ATELE T hematology comments: JOB SITE SUPERINTENDENT Not Available [facility] ([facility]) [address], [place], [address], 09/30/2022 09:16:40 09/30/19 23 09/30/2022 COMP. METAB OLIC PANEL (14) glucose 91 mg/dL 70-99 Not Available [facility] ([facility]) [address], [place], [address], 09/30/2022 09:16:41 09/30/19 23 09/30/2022 COMP. METAB OLIC PANEL (14) BUN 13 mg/dL 6-24 Not Available [facility] ([facility]) [address], [place], [address], 09/30/2022 09:16:41 09/30/19 23 09/30/2022 COMP. METAB OLIC PANEL (14) creatinine 1.08 mg/dL 0.76-1 .27 Not Available [facility] ([facility]) [address] [facility], [place], [address], 09/30/2022 09:16:41 09/30/19 23 09/30/2022 COMP. METAB OLIC PANEL (14) eGFR 80 mL/mi n/1.7 3 >59 Not Available [facility] ([facility]) [address], [place], [address], 09/30/2022 09:16:41 09/30/19 23 09/30/2022 COMP. METAB OLIC PANEL (14) BUN/creatini ne ratio 12 9-20 Not Available [facility] ([facility]) [address] [facility], [address], 09/30/2022 09:16:41 09/30/19 23 09/30/2022 COMP. METAB OLIC PANEL (14) sodium 139 mmol/ L 134-14 4 Not Available [facility] ([facility]) [address] [facility] [place], [address], 09/30/2022 09:16:41 09/30/19 23 09/30/2022 COMP. METAB OLIC PANEL (14) potassium 4.4 mmol/ L 3.5-5. 2 Not Available [facility] ([facility]) [address] [place], [address], 09/30/2022 09:16:41 09/30/19 23 09/30/2022 COMP. METAB OLIC PANEL (14) chloride 98 mmol/ L 96-106 Not Available [facility] ([facility]) [address] [place], [address], 09/30/2022 09:16:41 09/30/19 23 09/30/2022 COMP. METAB OLIC PANEL (14) carbon dioxide, total 24 mmol/ L 20-29 Not Available [facility] ([facility]) [address] [place], [address], 09/30/2022 09:16:41 09/30/19 23 09/30/2022 COMP. METAB OLIC PANEL (14) calcium 10.2 mg/dL 8.7-10 .2 Not Available [facility] ([facility]) [address] [place], [address], 09/30/2022 09:16:41 09/30/19 23 09/30/2022 COMP. METAB OLIC PANEL (14) protein, total 6.9 g/dL 6.0-8. 5 Not Available [facility] ([facility]) [address], [place], [address], 09/30/2022 09:16:41 09/30/19 23 09/30/2022 COMP. METAB OLIC PANEL (14) albumin 4.5 g/dL 3.8-4. 9 Not Available [facility] ([facility]) [address], [place], [address], 09/30/2022 09:16:41 09/30/19 23 09/30/2022 COMP. METAB OLIC PANEL (14) globulin, total 2.4 g/dL 1.5-4. 5 Not Available [facility] ([facility]) [address], [place], [address], 09/30/2022 09:16:41 09/30/19 23 09/30/2022 COMP. METAB OLIC PANEL (14) A/G ratio 1.9 1.2-2. 2 Not Available [facility] ([facility]) [address] [facility] [place] [address], 09/30/2022 09:16:41 09/30/19 23 09/30/2022 COMP. METAB OLIC PANEL (14) bilirubin, total 0.7 mg/dL 0.0-1. 2 Not Available [facility] ([facility]) [address] [facility] [place], [address], 09/30/2022 09:16:41 09/30/19 23 09/30/2022 COMP. METAB OLIC PANEL (14) alkaline phosphatase 83 IU/L 44-121 Not Available [facility] [address] [facility] [place], [address], 09/30/2022 09:16:41 09/30/19 23 09/30/2022 COMP. METAB OLIC PANEL (14) AST (SGOT) 28 IU/L 0-40 Not Available [facility] ([facility]) [address] [facility], [place], [address], 09/30/2022 09:16:41 09/30/19 23 09/30/2022 COMP. METAB OLIC PANEL (14) ALT (SGPT) 44 IU/L 0-44 Not Available [facility] ([facility]) [address] [facility], [place], [address], 09/30/2022 09:16:41 09/30/19 23 09/30/2022 URINA LYSIS , COMPL ETE specific gravity 1.020 1.005- 1.030 Not Available [facility] ([facility]) [address] [facility], [place], [address], 09/30/2022 09:16:41 09/30/19 23 09/30/2022 URINA LYSIS , COMPL ETE pH 8.0 5.0-7. 5 above high normal Not Available [facility] ([facility]) [address] [facility], [place], [address], 09/30/2022 09:16:41 09/30/1909/30/2022 URINA LYSIS , COMPL ETE urine-color Yellow yellow Not Available [facility]) [address] [facility], [place], [address], 09/30/2022 09:16:41 09/30/1909/30/2022 URINA LYSIS , COMPL ETE appearance Clear clear Not Available [facility] ([facility]) [address] [facility], [place], [address], 09/30/2022 09:16:41 09/30/1909/30/2022 URINA LYSIS , COMPL ETE WBC esterase Negati ve negati ve Not Available [facility] ([facility]) [address] [facility], [place], [address], 09/30/2022 09:16:41 03/05/11 2309/30/2022 URINA LYSIS , COMPL ETE protein 1+ negati ve/tra ce abnormal Not Available [facility] ([facility]) [address] [place], [address], 09/30/2022 09:16:41 09/30/1909/30/2022 URINA LYSIS , COMPL ETE glucose Trace negati ve abnormal Not Available [facility] ([facility]) [address] [place], [address], 09/30/2022 09:16:41 09/30/1909/30/2022 URINA LYSIS , COMPL ETE ketones Negati ve negati ve Not Available [facility] ([facility]) [address] [place], [address], 09/30/2022 09:16:41 09/30/1909/30/2022 URINA LYSIS , COMPL ETE occult blood Negati ve negati ve Not Available [facility] ([facility]) [address] [place], [address], 09/30/2022 09:16:41 09/30/1909/30/2022 URINA LYSIS , COMPL ETE bilirubin Negati ve negati ve Not Available [facility] ([facility]) [address] [place], [address], 09/30/2022 09:16:41 09/30/1909/30/2022 URINA LYSIS , COMPL ETE urobilinogen ,semi-qn 0.2 mg/dL 0.2-1. 0 Not Available [facility] ([facility]) [address] [place], [address], 09/30/2022 09:16:41 09/30/1909/30/2022 URINA LYSIS , COMPL ETE nitrite, urine Negati ve negati ve Not Available [facility] ([facility]) [address] [place], [address], 09/30/2022 09:16:41 09/30/19 23 09/30/2022 URINA LYSIS , COMPL ETE microscopic examination See below: Micro scopi c was indic ated and was perfo rmed. Not Available [facility] ([facility]) [address] [facility], [place], [address], 09/30/2022 09:16:41 09/30/19 23 09/30/2022 URINA LYSIS , COMPL ETE WBC 0-5 /hpf 0 - 5 Not Available [facility] ([facility]) [address] [facility], [place], [address], 09/30/2022 09:16:41 09/30/19 23 09/30/2022 URINA LYSIS , COMPL ETE RBC None seen /hpf 0 - 2 Not Available [facility] ([facility]) [address] [facility], [place], [address], 09/30/2022 09:16:41 09/30/19 23 09/30/2022 URINA LYSIS , COMPL ETE epithelial cells (non renal) None seen /hpf 0 - 10 Not Available [facility] ([facility]) [address] [facility], [place], [address], 09/30/2022 09:16:41 09/30/19 23 09/30/2022 URINA LYSIS , COMPL ETE epithelial cells (renal) JOB SITE SUPERINTENDENT Not Available [facility] ([facility]) [address] [facility], [place], [address], 09/30/2022 09:16:41 09/30/19 23 09/30/2022 URINA LYSIS , COMPL ETE casts None seen /lpf none seen Not Available [facility] ([facility]) [address] [facility], [place], [address], 09/30/2022 09:16:41 09/30/19 23 09/30/2022 URINA LYSIS , COMPL ETE cast type JOB SITE SUPERINTENDENT Not Available [facility] ([facility]) [address], [place], [address], 09/30/2022 09:16:41 09/30/1909/30/2022 URINA LYSIS , COMPL ETE crystals JOB SITE SUPERINTENDENT Not Available [facility] ([facility]) [address], [place], [address], 09/30/2022 09:16:41 09/30/1909/30/2022 URINA LYSIS , COMPL ETE crystal type JOB SITE SUPERINTENDENT Not Available [facility] ([facility]) [address], [place], [address], 09/30/2022 09:16:41 09/30/1909/30/2022 URINA LYSIS , COMPL ETE mucus threads JOB SITE SUPERINTENDENT Not Available [facility] ([facility]) [address], [place], [address], 09/30/2022 09:16:41 09/30/1909/30/2022 URINA LYSIS , COMPL ETE bacteria None seen none seen/f ew Not Available [facility] ([facility]) [address] [facility], [place], [address], 09/30/2022 09:16:41 09/30/1909/30/2022 URINA LYSIS , COMPL ETE yeast JOB SITE SUPERINTENDENT Not Available [facility] ([facility]) [address] [facility], [place], [address], 09/30/2022 09:16:41 09/30/1909/30/2022 URINA LYSIS , COMPL ETE trichomonas JOB SITE SUPERINTENDENT Not Available [facility] ([facility]) [address], [place], [address], 09/30/2022 09:16:41 09/30/19 23 09/30/2022 URINA LYSIS , COMPL ETE comment JOB SITE SUPERINTENDENT Not Available [facility] ([facility]) [address] [facility], [place], [address], 09/30/2022 09:16:41 09/30/19 23 09/30/2022 URINA LYSIS , COMPL ETE microscopic examination JOB SITE SUPERINTENDENT Not Available [facility] ([facility]) [address] [facility], [place], [address], 09/30/2022 09:16:41 09/30/19 23 09/30/2022 LIPID PANEL W/ CHOL/ HDL RATIO cholesterol, total 208 mg/dL 100-19 9 above high normal Not Available [facility] ([facility]) [address] [facility], [place], [address], 09/30/2022 09:16:42 09/30/19 23 09/30/2022 LIPID PANEL W/ CHOL/ HDL RATIO triglyceride s 428 mg/dL 0-149 above high normal Not Available [facility] ([facility]) [address] [facility], [place], [address], 09/30/2022 09:16:42 09/30/19 23 09/30/2022 LIPID PANEL W/ CHOL/ HDL RATIO HDL cholesterol 33 mg/dL >39 below low normal Not Available [facility] ([facility]) [address] [facility], [place], [address], 09/30/2022 09:16:42 09/30/19 23 09/30/2022 LIPID PANEL W/ CHOL/ HDL RATIO VLDL cholesterol chandra 73 mg/dL 5-40 above high normal Not Available [facility] ([facility]) [address] [place], [address], 09/30/2022 09:16:42 09/30/19 23 09/30/2022 LIPID PANEL W/ CHOL/ HDL RATIO [facility] 102 mg/dL 0-99 above high normal Not Available [facility] ([facility]) [address] [place], [address], 09/30/2022 09:16:42 09/30/19 23 09/30/2022 LIPID PANEL W/ CHOL/ HDL RATIO comment: JOB SITE SUPERINTENDENT Not Available [facility] ([facility]) [address] [facility], [place], [address], 09/30/2022 09:16:42 09/30/1909/30/2022 LIPID PANEL W/ CHOL/ HDL RATIO T. chol/HDL ratio 6.3 ratio 0.0-5. 0 above high normal T. Chol/ HDL Ratio Men Women 1/2 Avg.R isk 3.4 3.3 Avg.R isk 5.0 4.4 2X Avg.R isk 9.6 7.1 3X Avg.R isk 23.4 11.0 Not Available [facility] ([facility]) [address] [facility], [place], [address], 09/30/2022 09:16:42 09/30/1909/30/2022 PSA TOTAL (REFL EX TO FREE) prostate specific Ag 3.2 NG/mL 0.0-4. 0 [place] ECLIA metho dolog y. Accor ding to the Ameri can Urolo gical Assoc iatio n, Serum PSA shoul d decre ase and remai n at undet ectab le level s after radic al prost atect krishna. The AUA defin es bioch emica l recur rence as an initi al PSA value 0.2 ng/mL or great er follo wed by a subse quent confi rmato ry PSA value 0.2 ng/mL or great er. Value s obtai moises with diffe rent assay metho ds or kits canno t be used inter cai eably . Resul ts canno t be inter prete d as absol eyak evide nce of the prese nce or absen ce of pancho eckert se. Not Available [facility] ([facility]) [address] [facility], [place], [address], 09/30/2022 09:16:42 09/30/1909/30/2022 PSA TOTAL (REFL EX TO FREE) reflex criteria COMMEN T The perce nt free PSA is perfo rmed on a refle x basis only when the total PSA is betwe en 4.0 and 10.0 ng/mL . Not Available [facility] ([facility]) [address] [facility], [place], [address], 09/30/2022 09:16:42 09/30/19 23 09/30/2022 HEMOG LOBIN A1C hemoglobin A1C 5.8 % 4.8-5. 6 above high normal Predi abete s: 5.7 - 6.4 Diabe krishna: >6.4 Glyce mady contr ol for adult s with diabe krishna: <7.0 Not Available [facility] ([facility]) [address] [facility], [place], [address], 09/30/2022 09:16:43 09/07/19 24 09/08/2023 TSH+F REE T4 TSH 1.080 uIU/m L 0.450- 4.500 Not Available [facility] ([facility]) [address] [facility], [place], [address], 09/08/2023 08:22:21 09/07/19 24 09/08/2023 TSH+F REE T4 T4,free(dire ct) 1.08 NG/dL 0.82-1 .77 Not Available [facility] ([facility]) [address] [place], [address], 09/08/2023 08:22:21 09/07/19 24 09/08/2023 CBC WITH DIFFE RENTI AL/PL ATELE T WBC 10.1 x10e3 /uL 3.4-10 .8 Mateo ified by repea t jake sis Not Available [facility] ([facility]) [address] [place], [address], 09/08/2023 08:22:28 09/07/19 24 09/08/2023 CBC WITH DIFFE RENTI AL/PL ATELE T RBC 5.11 x10e6 /uL 4.14-5 .80 Not Available [facility] ([facility]) [address] [place], [address], 09/08/2023 08:22:28 09/07/19 24 09/08/2023 CBC WITH DIFFE RENTI AL/PL ATELE T hemoglobin 18.0 g/dL 13.0-1 7.7 above high normal Not Available [facility] ([facility]) [address] [facility], [place], [address], 09/08/2023 08:22:28 09/07/19 24 09/08/2023 CBC WITH DIFFE RENTI AL/PL ATELE T hematocrit 50.7 % 37.5-5 1.0 Not Available [facility] ([facility]) [address] [facility], [place], [address], 09/08/2023 08:22:28 09/07/19 24 09/08/2023 CBC WITH DIFFE RENTI AL/PL ATELE T MCV 99 fL 79-97 above high normal Not Available [facility] ([facility]) [address] [facility], [place], [address], 09/08/2023 08:22:28 09/07/19 24 09/08/2023 CBC WITH DIFFE RENTI AL/PL ATELE T MCH 35.2 pg 26.6-3 3.0 above high normal Not Available [facility] ([facility]) [address] [place], [address], 09/08/2023 08:22:28 09/07/19 24 09/08/2023 CBC WITH DIFFE RENTI AL/PL ATELE T MCHC 35.5 g/dL 31.5-3 5.7 Not Available [facility] ([facility]) [address] [place], [address], 09/08/2023 08:22:28 09/07/19 24 09/08/2023 CBC WITH DIFFE RENTI AL/PL ATELE T RDW 12.9 % 11.6-1 5.4 Not Available [facility] ([facility]) [address], [place], [address], 09/08/2023 08:22:28 09/07/19 24 09/08/2023 CBC WITH DIFFE RENTI AL/PL ATELE T platelets 319 x10e3 /uL 150-45 0 Not Available [facility] ([facility]) [address] [facility], [place], [address], 09/08/2023 08:22:28 09/07/19 24 09/08/2023 CBC WITH DIFFE RENTI AL/PL ATELE T neutrophils 61 % not estab. Not Available [facility] ([facility]) [address] [facility], [place], [address], 09/08/2023 08:22:28 09/07/19 24 09/08/2023 CBC WITH DIFFE RENTI AL/PL ATELE T lymphs 22 % not estab. Not Available [facility] ([facility]) [address] [facility], [place], [address], 09/08/2023 08:22:28 09/07/19 24 09/08/2023 CBC WITH DIFFE RENTI AL/PL ATELE T monocytes 11 % not estab. Not Available [facility] ([facility]) [address] [facility], [place], [address], 09/08/2023 08:22:28 09/07/19 24 09/08/2023 CBC WITH DIFFE RENTI AL/PL ATELE T eos 5 % not estab. Not Available [facility] ([facility]) [address] [facility], [place], [address], 09/08/2023 08:22:28 09/07/19 24 09/08/2023 CBC WITH DIFFE RENTI AL/PL ATELE T basos 1 % not estab. Not Available [facility] ([facility]) [address] [facility], [place], [address], 09/08/2023 08:22:28 09/07/19 24 09/08/2023 CBC WITH DIFFE RENTI AL/PL ATELE T immature cells JOB SITE SUPERINTENDENT Not Available [facility] ([facility]) [address] [place], [address], 09/08/2023 08:22:28 09/07/19 24 09/08/2023 CBC WITH DIFFE RENTI AL/PL ATELE T neutrophils (absolute) 6.1 x10e3 /uL 1.4-7. 0 Not Available [facility] ([facility]) [address] [place], [address], 09/08/2023 08:22:28 09/07/19 24 09/08/2023 CBC WITH DIFFE RENTI AL/PL ATELE T lymphs (absolute) 2.2 x10e3 /uL 0.7-3. 1 Not Available [facility] ([facility]) [address] [place], [address], 09/08/2023 08:22:28 09/07/19 24 09/08/2023 CBC WITH DIFFE RENTI AL/PL ATELE T monocytes(ab solute) 1.2 x10e3 /uL 0.1-0. 9 above high normal Not Available [facility] ([facility]) [address] [place], [address], 09/08/2023 08:22:28 09/07/19 24 09/08/2023 CBC WITH DIFFE RENTI AL/PL ATELE T eos (absolute) 0.6 x10e3 /uL 0.0-0. 4 above high normal Not Available [facility] ([facility]) [address] [place], [address], 09/08/2023 08:22:28 09/07/19 24 09/08/2023 CBC WITH DIFFE RENTI AL/PL ATELE T baso (absolute) 0.1 x10e3 /uL 0.0-0. 2 Not Available [facility] ([facility]) [address] [place], [address], 09/08/2023 08:22:28 09/07/19 24 09/08/2023 CBC WITH DIFFE RENTI AL/PL ATELE T immature granulocytes 0 % not estab. Not Available [facility] ([facility]) [address] [facility], [place], [address], 09/08/2023 08:22:28 09/07/19 24 09/08/2023 CBC WITH DIFFE RENTI AL/PL ATELE T immature grans (abs) 0.0 x10e3 /uL 0.0-0. 1 Not Available [facility] ([facility]) [address] [facility], [place], [address], 09/08/2023 08:22:28 09/07/19 24 09/08/2023 CBC WITH DIFFE RENTI AL/PL ATELE T NRBC JOB SITE SUPERINTENDENT Not Available [facility] ([facility]) [address] [facility], [place], [address], 09/08/2023 08:22:28 09/07/19 24 09/08/2023 CBC WITH DIFFE RENTI AL/PL ATELE T hematology comments: JOB SITE SUPERINTENDENT Not Available [facility] ([facility]) [address] [facility], [place], [address], 09/08/2023 08:22:28 09/07/19 24 09/08/2023 COMP. METAB OLIC PANEL (14) glucose 99 mg/dL 70-99 Not Available [facility] ([facility]) [address] [facility], [place], [address], 09/08/2023 08:22:29 09/07/19 24 09/08/2023 COMP. METAB OLIC PANEL (14) BUN 16 mg/dL 6-24 Not Available [facility] ([facility]) [address] [place], [address], 09/08/2023 08:22:29 09/07/19 24 09/08/2023 COMP. METAB OLIC PANEL (14) creatinine 0.99 mg/dL 0.76-1 .27 Not Available [facility] ([facility]) [address] [facility], [place], [address], 09/08/2023 08:22:29 09/07/19 24 09/08/2023 COMP. METAB OLIC PANEL (14) eGFR 88 mL/mi n/1.7 3 >59 Not Available [facility] ([facility]) [address] [facility], [place], [address], 09/08/2023 08:22:29 09/07/19 24 09/08/2023 COMP. METAB OLIC PANEL (14) BUN/creatini ne ratio 16 9-20 Not Available [facility] ([facility]) [address] [facility], [place], [address], 09/08/2023 08:22:29 09/07/19 24 09/08/2023 COMP. METAB OLIC PANEL (14) sodium 140 mmol/ L 134-14 4 Not Available [facility] ([facility]) [address] [place], [address], 09/08/2023 08:22:29 09/07/19 24 09/08/2023 COMP. METAB OLIC PANEL (14) potassium 4.4 mmol/ L 3.5-5. 2 Not Available [facility] ([facility]) [address] [facility], [place], [address], 09/08/2023 08:22:29 09/07/19 24 09/08/2023 COMP. METAB OLIC PANEL (14) chloride 100 mmol/ L 96-106 Not Available [facility] ([facility]) [address] [place], [address], 09/08/2023 08:22:29 09/07/19 24 09/08/2023 COMP. METAB OLIC PANEL (14) carbon dioxide, total 21 mmol/ L 20-29 Not Available [facility] ([facility]) [address] [place], [address], 09/08/2023 08:22:29 09/07/19 24 09/08/2023 COMP. METAB OLIC PANEL (14) calcium 9.8 mg/dL 8.7-10 .2 Not Available [facility] ([facility]) [address] [place], [address], 09/08/2023 08:22:29 09/07/19 24 09/08/2023 COMP. METAB OLIC PANEL (14) protein, total 6.7 g/dL 6.0-8. 5 Not Available [facility] ([facility]) [address] [place], [address], 09/08/2023 08:22:29 09/07/19 24 09/08/2023 COMP. METAB OLIC PANEL (14) albumin 4.5 g/dL 3.8-4. 9 Not Available [facility] ([facility]) [address] [place], [address], 09/08/2023 08:22:29 09/07/19 24 09/08/2023 COMP. METAB OLIC PANEL (14) globulin, total 2.2 g/dL 1.5-4. 5 Not Available [facility] ([facility]) [address] [place], [address], 09/08/2023 08:22:29 09/07/19 24 09/08/2023 COMP. METAB OLIC PANEL (14) A/G ratio 2.0 1.2-2. 2 Not Available [facility] ([facility]) [address] [place], [address], 09/08/2023 08:22:29 09/07/19 24 09/08/2023 COMP. METAB OLIC PANEL (14) bilirubin, total 0.6 mg/dL 0.0-1. 2 Not Available [facility] ([facility]) [address] [place], [address], 09/08/2023 08:22:29 09/07/19 24 09/08/2023 COMP. METAB OLIC PANEL (14) alkaline phosphatase 84 IU/L 44-121 Not Available [facility] ([facility]) [address] [place], [address], 09/08/2023 08:22:29 09/07/19 24 09/08/2023 COMP. METAB OLIC PANEL (14) AST (SGOT) 34 IU/L 0-40 Not Available [facility] ([facility]) [address] [place], [address], 09/08/2023 08:22:29 09/07/19 24 09/08/2023 COMP. METAB OLIC PANEL (14) ALT (SGPT) 54 IU/L 0-44 above high normal Not Available [facility] ([facility]) [address] [place], [address], 09/08/2023 08:22:29 09/07/19 24 09/08/2023 LP+CH OL/HD L+LDL /HDL cholesterol, total 214 mg/dL 100-19 9 above high normal Not Available [facility] ([facility]) [address] [place], [address], 09/08/2023 08:22:29 09/07/19 24 09/08/2023 LP+CH OL/HD L+LDL /HDL triglyceride s 502 mg/dL 0-149 above high normal Not Available [facility] ([facility]) [address] [place], [address], 09/08/2023 08:22:29 09/07/19 24 09/08/2023 LP+CH OL/HD L+LDL /HDL HDL cholesterol 35 mg/dL >39 below low normal Not Available [facility] ([facility]) [address] [place], [address], 09/08/2023 08:22:29 09/07/19 24 09/08/2023 LP+CH OL/HD L+LDL /HDL VLDL cholesterol chandra 84 mg/dL 5-40 above high normal Not Available [facility] ([facility]) [address] [place], [address], 09/08/2023 08:22:29 09/07/19 24 09/08/2023 LP+CH OL/HD L+LDL /HDL LDL [facility] 95 mg/dL 0-99 Not Available [facility] ([facility]) [address] [place], [address], 09/08/2023 08:22:29 09/07/19 24 09/08/2023 LP+CH OL/HD L+LDL /HDL comment: JOB SITE SUPERINTENDENT Not Available [facility] ([facility]) [address] [place], [address], 09/08/2023 08:22:29 09/07/19 24 09/08/2023 LP+CH OL/HD L+LDL /HDL T. chol/HDL ratio 6.1 ratio 0.0-5. 0 above high normal T. Chol/ HDL Ratio Men Women 1/2 Avg.R isk 3.4 3.3 Avg.R isk 5.0 4.4 2X Avg.R isk 9.6 7.1 3X Avg.R isk 23.4 11.0 Not Available [facility] ([facility]) [address] [place], [address], 09/08/2023 08:22:29 09/07/19 24 09/08/2023 LP+CH OL/HD L+LDL /HDL LDL/HDL ratio 2.7 ratio 0.0-3. 6 LDL/H DL Ratio Men Women 1/2 Avg.R isk 1.0 1.5 Avg.R isk 3.6 3.2 2X Avg.R isk 6.2 5.0 3X Avg.R isk 8.0 6.1 Not Available [facility] ([facility]) [address] [place], [address], 09/08/2023 08:22:29 09/07/19 24 09/07/2023 PSA TOTAL (REFL EX TO FREE) reflex criteria Commen t The perce nt free PSA is perfo rmed on a refle x basis only when the total PSA is betwe en 4.0 and 10.0 ng/mL . Not Available [facility] ([facility]) [address] [facility], [place], [address], 09/08/2023 08:22:30 09/07/1909/08/2023 PSA TOTAL (REFL EX TO FREE) prostate specific Ag 3.9 NG/mL 0.0-4. 0 [place] ECLIA metho dolog y. Accor ding to the Ameri can Urolo gical Assoc iatio n, Serum PSA shoul d decre ase and remai n at undet ectab le level s after radic al prost atect krishna. The AUA defin es bioch emica l recur rence as an initi al PSA value 0.2 ng/mL or great er follo wed by a subse quent confi rmato ry PSA value 0.2 ng/mL or great er. Value s obtai moises with diffe rent assay metho ds or kits canno t be used inter cai eably . Resul ts canno t be inter prete d as absol eyak evide nce of the prese nce or absen ce of pancho eckert se. Not Available [facility] ([facility]) [address] [facility], [place], [address], 09/08/2023 08:22:30 09/07/1909/08/2023 HEMOG LOBIN A1C hemoglobin A1C 6.0 % 4.8-5. 6 above high normal Predi abete s: 5.7 - 6.4 Diabe krishna: >6.4 Glyce mady contr ol for adult s with diabe krishna: <7.0 Not Available [facility] ([facility]) [address] [facility], [place], [address], 09/08/2023 08:22:30 03/08/20 23 02/26/2023 LDCT, chest , for lung cance r scree jaida No observ ation record ed. [facility] ([facility]) [address], [place], [address], 09/07/2023 14:26:00 06/04/20 24 06/02/2024 mandy agudelo amapril ne ECG, 12 leads min No observ ation record ed. [email or web address] [address] [place], [id number], 06/12/2024 10:55:31 10/02/19 25 10/01/2024 XR, chest No observ ation record ed. [email or web address] [address] [place], [address], 10/20/2024 12:41:59 10/02/19 25 10/01/2024 XR, chest No observ ation record ed. [email or web address] [address] [place], [id number], 10/20/2024 12:42:40 Result Notes None recorded. Problems Name Problem SNOMED Code Status Onset Date Resolution Date Notes Provider Name and Address Organization Details Recorded Time Moderate chronic obstructive pulmonary disease 963104322 Active Not Available [facility] 03:40:26 Allergic rhinitis 57357500 Active Not Available [facility] 03:40:26 Nicotine dependence 45814059 Active Not Available [facility] 03:40:26 Hypertensive disorder 36409056 Active Not Available [facility] 03:40:26 Mixed hyperlipidemi a 012582011 Active Not Available [facility] 03:40:26 Gastroesophag eal reflux disease 858920282 Active Not Available [facility] 03:40:26 Asthma 666956586 Active 2011 Not Available [facility] 03:40:26 Nicotine dependence with current use 012095565 Active 2019 Not Available [facility] 03:40:26 Chronic obstructive pulmonary disease 60927034 Active 2019 Not Available [facility] 03:40:26 Hyperlipidemi a 66930463 Active 2019 Not Available [facility] 03:40:26 Problem Notes None recorded. Procedures Surgical History Date Name Laterality Status Provider Name and Address Organization Details Recorded Time 1 excision of lipoma of back completed Khari Her MD [address] [place], [place], [address], JOAN Her MD 09/11/2021 21:45:12 1 colonoscopy completed Khari Her MD [address] [place], [place], [address], JOAN Her MD 09/11/2021 21:38:29 5 Colonoscopy completed Khari Her MD [address] [place], [place], [address], JOAN Her MD 08/17/2018 14:11:06 Imaging Results None recorded. Procedure Notes None recorded. Medical Equipment None Reported. Allergies No known drug allergies Medications Name Sig Start Date Stop Date Status Note LastModified by Organization Details LastModified Time losartan 50 mg tablet TAKE 1 TABLET BY MOUTH DAILY 05/04 completed Not Available Not Available Not Available prednisone 10 mg tablet 4 po day 1, then 3 po daily 2 days, then 2 po daily 2 days, then 1 po daily 4 days.. 10/29 completed Not Available Not Available Not Available doxycycline hyclate 100 mg capsule 01/16 completed Not Available Not Available Not Available albuterol sulfate 2.5 mg/3 mL (0.083 %) solution for nebulizatio n INHALE CONTENTS OF 1 VIAL IN NEBULIZER EVERY 6 HOURS NEEDED 2024 active Not Available Not Available Not Avai lable cetirizine 10 mg tablet Take 1 tablet every day by oral route. 03/20 completed Not Available Not Available Not Available atorvastati n 10 mg tablet TAKE 1 TABLET BY MOUTH EVERY EVENING active Not Available Not Available No t Available azithromyci n 250 mg tablet TAKE 2 TABLETS (500 MG) BY ORAL ROUTE ONCE DAILY FOR 1 DAY THEN 1 TABLET (250 MG) BY ORAL ROUTE ONCE DAILY FOR 4 DAYS 10/29 completed Not Available Not Available Not Available benzonatate 200 mg capsule take 1 capsule by mouth three times a day 02/15 completed Not Available Not Available Not Available hydrocodone 5 mg-acetamin ophen 325 mg tablet TAKE ONE TABLET BY MOUTH EVERY 4 HOURS NEEDED FOR MODERATE PAIN. 4-6 PAIN SCALE 09/02 completed Not Available Not Available Not Available prednisone 20 mg tablet TAKE 2 TABLETS BY MOUTH ONCE DAILY IN AM WITH FOOD FOR 5 DAYS 10/29 completed Not Available Not Available Not Available prednisone 5 mg tablet 8 tablets po day 1, then 6 po daily 2 days, then 4 po daily 2 days, then 2 po daily 4 days. 2024 active Not Available Not Available Not Avai lable omeprazole 40 mg capsule,del ayed release 1 (one) capsule, delayed release orally once a day 08/15 completed Not Available Not Available Not Available sildenafil 100 mg tablet 1/2-1 tablet daily as needed 2018 active Not Available Not Available Not Avai lable ketorolac 10 mg tablet TAKE 1 TABLET BY MOUTH EVERY 6 HOURS NEEDED FOR PAIN 09/02 completed Not Available Not Available Not Available alprazolam 0.5 mg tablet 1 (one) tablet(s) oral 3 times a day 03/17 completed Not Available Not Available Not Available ofloxacin 0.3 % ear drops active Not Available Not Available Not Available prednisolon e acetate 1 % eye drops,suspe nsion 07/17 completed Not Available Not Available Not Available doxycycline monohydrate 100 mg capsule TAKE 1 CAPSULE BY MOUTH TWICE DAILY FOR 10 DAYS 01/08 completed Not Available Not Available Not Available nicotine 21 mg/24 hr daily transdermal patch Apply 1 patch every day by transderm al route. 2023 active Not Available Not Available Not Avai lable montelukast 10 mg tablet take 1 tablet by mouth once daily 07/17 completed Not Available Not Available Not Available methylpredn isolone 4 mg tablets in a dose pack FOLLOW PACKAGE DIRECTION S 06/12 completed Not Available Not Available Not Available albuterol sulfate HFA 90 mcg/actuati on aerosol inhaler INHALE 2 PUFFS BY MOUTH FOUR TIMES DAILY active Not Available Not Available No t Available ondansetron 4 mg disintegrat ing tablet 06/14 completed Not Available Not Available Not Available cefdinir 300 mg capsule Take 1 capsule twice a day by oral route for 10 days. 02/03 completed Not Available Not Available Not Available losartan 100 mg tablet TAKE 1 TABLET BY MOUTH EVERY DAY active Not Available Not Available No t Available fluticasone propionate 50 mcg/actuati on nasal spray,suspe nsion SHAKE LIQUID AND USE 1 SPRAY IN EACH NOSTRIL EVERY DAY active Not Available Not Available No t Available amoxicillin 875 mg-potassiu m clavulanate 125 mg tablet Take 1 tablet every 12 hours by oral route for 10 days. 02/15 completed Not Available Not Available Not Available omega-3 acid ethyl esters 1 gram capsule TAKE 2 CAPSULES BY MOUTH TWICE DAILY active Not Available Not Available No t Available varenicline tartrate 1 mg tablet TAKE 1 TABLET BY MOUTH TWICE DAILY 09/07 completed Not Available Not Available Not Available varenicline tartrate 0.5 mg (11)-1 mg (42) tablets in a dose pack TAKE DIRECTED 09/07 completed Not Available Not Available Not Available Advair HFA 115 mcg-21 mcg/actuati on aerosol inhaler inhalatio n 03/17 completed Not Available Not Available Not Available levocetiriz ine 5 mg tablet TAKE 1 TABLET BY MOUTH EVERY DAY active Not Available Not Available No t Available Besivance 0.6 % eye drops,suspe nsion 07/17 completed Not Available Not Available Not Available Suprep Bowel Prep Kit 17.5 gram-3.13 gram-1.6 gram oral solution USE DIRECTED BEFORE PROCEDURE 06/24 completed Not Available Not Available Not Available Breo Ellipta 100 mcg-25 mcg/dose powder for inhalation 1 POWDER INHALATIO N ONCE A DAY 03/20 completed Not Available Not Available Not Available Anoro Ellipta 62.5 mcg-25 mcg/actuati on powder for inhalation Inhale 1 puff every day by inhalatio n route. 03/20 completed Not Available Not Available Not Available Spiriva Respimat 2.5 mcg/actuati on solution for inhalation 1 (one) inhalatio n 2 times a day 2014 active Not Available Not Available Not Avai lable Breo Ellipta 200 mcg-25 mcg/dose powder for inhalation INHALE 1 PUFF BY MOUTH EVERY DAY 09/29 completed Not Available Not Available Not Available Afluria 9839-4848 (PF) 45 mcg(15 mcg x 3)/0.5 mL intramuscul ar syringe 08/17 completed Not Available Not Available Not Available Wixela Inhub 500 mcg-50 mcg/dose powder for inhalation INHALE 1 PUFF BY MOUTH TWICE DAILY active Not Available Not Available No t Available Fluarix Quad (PF) 60 mcg (15 mcg x 4)/0.5 mL IM syringe 06/16 completed Not Available Not Available Not Available Vitals Date Recorded Systolic And Diastolic Provider Name and Address Organization Details Last Updated DateTime 08/13/2020 128/95 mm[Hg] Khari Her MD [address], [place], [address], JOAN Hre MD 08/13/2020 15:36:57 Date Recorded Body height Body mass index (BMI) Body weight Body temperature Systolic And Diastolic Provider Name and Address Organization Details Last Updated DateTime 08/13/2020 177.8 cm 30.6 kg/m2 57671.1 7 g 98.5 [degF] 146/118 mm[Hg] Susie Her MD 15:00:00 Date Recorded Body height Body mass index (BMI) Body weight Systolic And Diastolic Provider Name and Address Organization Details Last Updated DateTime 09/02/2021 177.8 cm 31.7 kg/m2 610535.91 g 140/92 mm[Hg] Susie Her MD 09/02/2021 14:34:33 Date Recorded Heart rate Systolic And Diastolic Provider Name and Address Organization Details Last Updated DateTime 09/07/2023 102 /min 125/90 mm[Hg] Khari Her MD [address], [place], [address], JOAN Her MD 09/07/2023 14:42:10 Date Recorded Body height Body mass index (BMI) Body weight Body temperature Systolic And Diastolic Provider Name and Address Organization Details Last Updated DateTime 09/07/2023 177.8 cm 32.9 kg/m2 661224. 65 g 98.1 [degF] 128/91 mm[Hg] Susie Her MD 4 14:07:25 Date Recorded Systolic And Diastolic Provider Name and Address Organization Details Last Updated DateTime 09/29/2022 136/98 mm[Hg] Khari Her MD [address], [place], [address], JOAN Her MD 09/29/2022 13:50:53 Date Recorded Body height Body mass index (BMI) Body weight Oxygen saturation Oxygen saturation in Arterial blood by Pulse oximetry Body temperature Heart rate Systolic And Diastolic Provider Name and Address Organization Details Last Updated DateTime 3 177.8 cm 33.4 kg/m2 435865. 02 g 97 % 97 % 98 [degF] 96 /min 140/105 mm[Hg] Susie Her MD 3 13:40:47 Date Recorded Body height Body temperature Body mass index (BMI) Body weight Systolic And Diastolic Provider Name and Address Organization Details Last Updated DateTime 05/26/2021 177.8 cm 98 [degF] 31.3 kg/m2 09711.1 4 g 130/86 mm[Hg] Susie Her MD 1 11:05:11 Social History Question Answer Notes LastModified by Organizat ion Details LastModified Time Tobacco Smoking Status Current Every Day Smoker JOAN Earl MD 01/16/2017 17:05:28 What Was The Date Of Your Most Recent Tobacco Screening? 08/17/2018 Information n ot available 02/12/2019 How Much Tobacco Do You Smoke? 1 PPD Information not available 07/17/2019 How Many Years Have You Smoked Tobacco? 40 Information not available 01/21/2017 Sex: Unknown Functional Status Question Answer Note LastModified by OrganPeerioat ion Details LastModified Time Do you or have you ever used smokeless tobacco? Never used smokeless tobacco Information not available 07/17/2019 Do you or have you ever used e-cigarettes or vape? Never used electronic cigarettes Information not available 07/17/2019 Mental Status None recorded. Family History Nothing Reported Notes:Father during surgical procedure. Had dementia. Mother age 89 dementia and advanced age. One twin brother with skin disorder (not cancer) and hearing loss. Older brother prostate cancer age 64. 2 sisters, one with kidney stones. Medical History Condition Response Allergies/Hayfever Y COPD Y Asthma Y Reflux/GERD Y High Cholesterol Y Hypertension Y Immunizations Vaccine Type Date Status Note Provider Nam e and Address Organization Details Recorded Time zoster recombinant 2 completed Khari Her MD [address], [place], [address], [facility] Ryanne Her MD 09/29/2022 14:12:32 influenza, unspecified formulation 2 completed Khari Her MD [address], [place], [address], [facility] Ryanne Hre MD 09/29/2022 14:13:02 Tdap 1 completed Khari Her MD [address], [place], [address], [facility] Ryanne Her MD 05/26/2021 11:06:12 Influenza, split virus, quadrivalent, preservative 7 completed Khari Her MD [address], [place], [address], [facility] Ryanne Her MD 05/26/2021 11:06:12 Influenza, split virus, quadrivalent, preservative 8 completed Khari Her MD [address], [place], [address], [facility] Ryanne Her MD 05/26/2021 11:06:12 Influenza, split virus, quadrivalent, PF 0 completed Khari Her MD [address], [place], [address], [facility] Ryanne Her MD 05/26/2021 11:06:12 COVID-19, mRNA, LNP-S, PF, 30 mcg/0.3 mL dose 1 completed Khari Her MD [address], [place], [address], JOAN Her MD 05/26/2021 11:07:53 COVID-19, mRNA, LNP-S, PF, 30 mcg/0.3 mL dose 1 completed Khari Her MD [address], [place], [address], JOAN Her MD 05/26/2021 11:07:39 COVID-19, mRNA, LNP-S, PF, 30 mcg/0.3 mL dose 2 completed JOAN Earl MD 09/02/2021 14:05:42 Influenza, split virus, quadrivalent, preservative 1 completed JOAN Earl MD 09/02/2021 14:06:16 Past Encounters Encounter ID Performer Location Encounter Start Date Encounter Closed Date Diagnosis/Indication Diagnosis SNOMED-CT Code Diagnosis ICD10 Code Diagnosis IMO Codes Diagnosis Note [id number] Khari Her MD Main Office [address] [place] [id number] 01/16/2017 16:06:49 01/16/2017 17:33:32 Chronic obstructive pulmonary disease 18697457 J44.9 acute exacerbati on Nicotine dependence 5629 4008 F17.200 willing to try Chantix. Moderate c hronic obstructive pulmonary disease 536939529 J44.9 Allergic rhinitis 006933 04 J30.9 on chronic medical treatment with cetirizine , montelukas t. Hypertensive disorder 38 108354 I10 blood pressure stable. [id number] Khari Her MD Main Office [address] [place] [id number] 02/01/2017 16:06:49 02/06/2017 12:08:16 Allergic rhinitis 51290868 J30.9 chronic with seasonal exacerbati ons Chronic ob structive pulmonary disease 68116329 J44.9 improved symptomati christian and clinically Nicotine dependence 5629 4008 F17.200 some benefit from Chantix at 0.5 mg twice daily dose. No adverse side effects. Acute bronchitis 6278754 2 J20.9 resolved after treatment with cefdinir [id number] Khari Her MD Main Office [address] [place] [id number] 03/20/2018 12:58:35 03/20/2018 13:19:21 Acute bronchitis 68301470 J20.9 Chronic ob structive pulmonary disease 34562506 J44.9 Mild acute exacerbati on secondary to above. Finding re lating to psychosocial functioning 564254301 Z65.9 Nicotine dependence 5629 4008 F17.200 Trying to reduce use. [id number] Khari Her MD Main Office [address] [place] [id number] 08/15/2018 13:26:01 08/15/2018 15:24:00 Gastroesophageal reflux disease 226956889 K21.9 Mixed hyperlipidemia 267 818910 E78.2 Hypertensive disorder 38 174399 I10 Blood pressure increased, however he has been out of his losartan for approximat mannie 2 weeks. Adult heal th examination 343963202 Z00.00 53-year-ol d male. Screening for cardiovascular system disease 036239630 Z13.6 Screening for malignant neoplasm of prostate 419858413 Z12.5 Primary er ectile dysfunction 435524037 N52.9 Allergic rhinitis 206218 04 J30.9 chronic with seasonal exacerbati ons Chronic ob structive pulmonary disease 98705891 J44.9 Moderately severe. Recent improvemen t in symptoms. Possible cat allergy worsening COPD. Neuropathy 944451558 G62 .9 Harmful pa ttern of use of alcohol 57606106 F10.10 Currently excessive alcohol intake. Triggered by psychosoci al stress. Nicotine d ependence with current use 180676552 F17.200 Significan t reduction in use and he has quit in the past. [id number] Khari Her MD Main Office [address] [place] [id number] 07/17/2019 13:34:22 07/17/2019 14:13:49 Chronic obstructive pulmonary disease 77132615 J44.9 Acute bronchitis 0160254 2 J20.9 Fatigue 01315099 R53.83 Rule out metabolic abnormalit ies including low testostero ne. Medication review done by doctor 315621914 Z76.89 Nicotine dependence 5629 4008 F17.200 Trying to reduce use. Hypertensive disorder 38 707050 I10 Blood pressure slightly elevated. [id number] Khari Her MD Main Office [address] [place] [id number] 06/14/2020 15:21:33 06/14/2020 16:29:58 Chronic obstructive pulmonary disease 87775229 J44.9 Remains on inhalers. He has been on several other respirator y medication s in the past including Anoro inhaler and Advair inhaler.He feels the Breo inhaler is the most beneficial . Continued cigarette use complicati ng treatment. Hypertensive disorder 38 469649 I10 Blood pressure increased today. He reports readings at home are better. Acute illness may be a factor. Hyperlipidemia 35583129 E78.5 He remains on atorvastat in. Also trying to control with diet. Family his tory of malignant neoplasm of prostate 892805757 Z80.42 Adult heal th examination 681601653 Z00.00 54-year-ol d male. Acute exac erbation of chronic obstructive pulmonary disease 285882621 J44.1 Current acute exacerbati on. Nicotine d ependence with current use 989115869 F17.200 Significan t reduction in use and he has quit in the past. Screening for malignant neoplasm of colon 941485279 Z12.11 Polyp removed on study 2014. Recommende d followup in [address] Archuleta. Medication review done by doctor 821211236 Z76.89 [id number] Khari Her MD Main Office [address] [place] [id number] 08/13/2020 14:48:42 08/13/2020 15:53:22 Hypertensive disorder 97688012 I10 Blood pressure increased. Hyperlipidemia 90202054 E78.5 He remains on atorvastat in. Also trying to control with diet. Chronic ob structive pulmonary disease 59181225 J44.9 Remains on inhalers. He has been on several other respirator y medication s in the past including Anoro inhaler and Advair inhaler. He feels the Breo inhaler is the most beneficial . Continued cigarette use complicati ng treatment. Medication review done by doctor 876715921 Z76. Colorectal cancer screening not done 1878126885 100 Z53.9 Colonoscop y scheduled. [id number] Khari Her MD Main Office [address] [place] [id number] 05/26/2021 11:00:42 05/26/2021 11:05:07 Chronic obstructive pulmonary disease 48737083 J44.9 Lipoma of back 227236895 D17.1 [id number] Khari Her MD Main Office [address] [place] [id number] 09/02/2021 13:56:02 09/02/2021 15:22:52 Hyperglycemia 03739420 R73.9 Glucose levels are mildly elevated. Possible prediabete s. Adult [facility] th examination 640304432 Z00.00 56-year-ol d male. Chronic ob structive pulmonary disease 65056465 J44.9 Hypertensive disorder 38 752109 I10 Blood pressure increased. Medication review done by doctor 098202660 Z. Mixed hyperlipidemia 267 289963 E78.2 On atorvastat in and diet. [id number] Khari Her MD Main Office [address] [place] [id number] 09/29/2022 13:28:48 09/29/2022 14:41:24 Hypertensive disorder 57866546 I10 Blood pressure higher than desired. He remains on losartan 100 mg daily. Screening for malignant neoplasm of prostate 950077308 Z12.5 Hyperlipidemia 12307340 E78.5 He remains on atorvastat in. Also trying to control with diet. Diabetes m ellitus screening 130357351 Z13.1 Adult [facility] th examination 775221312 Z00.00 57-year-ol d male. Nicotine d ependence with current use 682785062 F17.200 Significan t reduction in use and he has quit in the past. Body mass index 30+ - obesity 201016700 Z68.33 Chronic ob structive pulmonary disease 46534230 J44.1 Seen by pulmonolog ist in the past but has not had followup for several years. Continued cigarette use. Medication review done by doctor 892444003 Z76.89 Screening for malignant neoplasm of respiratory tract 725644653 Z12.2 He states he had a LDCT performed approximat mannie 2 years ago at [facility]. Obstructiv e sleep apnea of adult 5744153161 103 G47.33 Possible CRISTHIAN contributi ng to his hypertensi on and respirator y problems. He has multiple risk factors. [id number] Khari Her MD Main Office [address] [place] [id number] 09/07/2023 13:58:10 09/07/2023 15:13:52 Hypertensive disorder 97103851 I10 Fair control with some elevation of diastolic blood pressure. He remains on losartan 100 mg daily. Screening for malignant neoplasm of prostate 300085031 Z12.5 Diabetes m ellitus screening 961849188 Z13.1 Hypertriglyceridemia 302 131860 E78.2 He remains on atorvastat in. Also trying to control with diet. His triglyceri fabi have remained elevated historical ly. Nicotine dependence 5629 4008 F17.200 Continues effort to reduce use. He is willing to try nicotine patches. He was unable to tolerate Chantix due to depression . Chronic ob structive pulmonary disease 36318449 J44.1 Seen by pulmonolog ist several years ago and diagnosed with moderate persistent allergic asthma. FEV1 was 67% and FEV1/FVC ratio 66%. Disease has likely progressed with his continued cigarette use. Remains on respirator y inhalers and requires prednisone intermitte ntly with exacerbati ons. Hearing loss 85774736 H9 1.92 Referral to ENT for evaluation . Suspect eustachian tube dysfunctio n and probable sensorineu ral hearing loss. Adult heal th examination 601899484 Z00.00 58-year-ol d male. Medication review done by doctor 955478667 Z76.89 Body mass index 30+ - obesity 911563976 Z68.33 Health Concerns Section Related Observation LastModified by Organization Detai ls LastModified Time None Recorded Concern Status LastModified by Organization Details LastModified Time None Recorded Advance Directives Directive None Recorded Payers Insurance Date Sequence Insurance Name Policy Number Policy [place] Covered Member ID [place]ellin Member ID Guarantor Name 09/14/2023 1 [place] [id number] Andre Hatch [id number] Andre Hatch Notes Date Note Type Note Provider Name and Address Organization Details Recorded Time 08/13/2020 text/html No recent fevers, sore throat, cough, or other acute respiratory symptoms. No known or suspected exposure to Covid-19. Seen today for followup of hypertension, COPD, nicotine dependence. He says his blood pressure has been elevated some and thinks he may need to increase his losartan. Denies any edema of legs or shortness of breath. No known increased dietary sodium intake. Wants fasting labs today. nkda uses rehana Her MD [address], [place], [address], JOAN Her MD 10/10/2020 22:19:52 05/26/2021 text/html No recent fevers, sore throat, cough, or other acute respiratory symptoms. He has had 2 Covid vaccinations. Seen today for persistent left shoulder mass suspected lipoma. He has had it for several years, it has gotten larger. No pain unless he directly lies on it and then notes some pressure. No redness or drainage. He plays golf and wanted to wait until the end of the fall before proceeding with further evaluation and treatment. He would like referral to see Dr. Garcia. Khari Her MD [address], [place], [address], JOAN Her MD 05/26/2021 11:15:13 09/02/2021 text/html No fevers, sore throat, cough, or other acute respiratory symptoms. He has had 3 Covid-19 vaccinations. Seen today for followup of hypertension, COPD, erectile dysfunction, and hyperlipidemia. He had a COPD exacerbation approximately 1 month ago. No current increased wheezing or cough. He has been using his inhalers faithfully. Khari Her MD [address], [place], [address], JOAN Her MD 09/11/2021 23:25:05 09/29/2022 text/html 57-year-old male seen for annual exam. History of hypertension, COPD, hyperlipidemia, and GERD. He needs fasting labs. He remains on medications as listed in the EMR. He does not check his blood pressure routinely. Usually fair control. He remains on chronic respiratory medications. He has occasional flareups and is treated with short courses of oral corticosteroids. No hospitalizations. He continues to smoke cigarettes but has reduced his use to 1 pack daily. Many years ago he smoked several packs daily. No vaping. He did quit smoking for several years with the assistance of Chantix. nkda uses john Her MD [address], [place], [address], [facility] Ryanne Her MD 10/18/2022 20:49:27 09/07/2023 text/html Annual check up for 58 year old male. History of asthma, COPD, hypertension, and hyperlipidemia. He remains on medications as listed in EMR. He has occasional exacerbations of his asthma/COPD. He remains on Wixela inhaler daily and uses albuterol MDI or nebulizer as needed. He has had to take several courses of oral prednisone. He has not had any hospitalizations. He continues to smoke cigarettes but is trying to reduce his use. Currently smoking one pack daily. He was not able to tolerate Chantix in the past as it caused depression. He is willing to try nicotine patches and has considered using nicotine gum. He does not vape. Today he reports persistent sinus congestion and feeling that his ears are plugged up, right greater than left. He is not able to pop his ears. He would like to see ENT Dr. Morrow. uses rehana max. Khari Her MD [address], [place], [address], JOAN Her MD 09/14/2023 11:26:10
--- OUTSIDE RECORDS SUMMARY | 2025-05-28 10:25 | XMS_ITS | Data Portability ---
Author Organization [facility] KAREN Vargas BUNCH CLOSED Address [address] [place] [address] Care Team Providers Care Teletypesetter Operator Name Role Phone RANDA EL Primary Care Provider [phone] Assessment Encounter Date Assessment Date Assessment LastModified by Organization Details LastModified Time 06/20/2024 06/20/2024 PREOPERATIVE DIAGNOSIS: Chronic serous otitis media, left ear. POSTOPERATIVE DIAGNOSIS: Chronic serous otitis media, left ear. PROCEDURE: Left tympanostomy and tube placement. SURGEON: Scott Morrow MD ANESTHESIA: General. COMPLICATIONS: None. INDICATIONS: A 58-year-old male with eustachian tube dysfunction and chronic serous otitis media of his left ear unresponsive to medical therapy. The above was recommended, and informed consent was obtained. FINDINGS: Retracted left tympanic membrane and chronic serous otitis media in the left middle ear space. OPERATIVE NOTE: Patient was brought to the operating room and after adequate general anesthesia, the left ear was draped in the usual sterile fashion and the operating microscope employed to visualize the tympanic membrane. Tympanostomy was made in the anterior-inferio r quadrant, and suction employed to clear the middle ear space and infusion. A Whitlock T-tube was then placed and ciprofloxacin drops supplied, and the procedure was concluded. All counts correct. Blood loss 0. Patient was sent to recovery room in stable condition. [email or web address] Not available 06/20/2024 12:25:33 Plan of Treatment Reminders Order Date Submit Date Provider Last Modified By Organization Details Last Modified Time Details Appointments RECHECK 2025 10:10A M SCOTT MORROW MD Not available Not available Not available Lab None recorded . Referral None recorded . Procedures None recorded . Surgeries None recorded . Imaging None recorded . Medication Orders Medrol (Holden) 4 mg tablets in a dose pack 2023 024 [email or web address] [id number], [address] [address] [place], [id number], 05/01/2024 11:46:26 Patient TargetsNo targets recorded. Patient Instructions Encounter Date Encounter Id Patient Instructions Last Modified By Organization Details Last Modified Time 04/11/2024 [id number] 1. Left cerumenectomy performed under microscopy 2. Continue Flonase spray but increase to BID until follow up 3. Rx - Medrol dose pack, take as directed 4. Sweet oil, 3 drops to left ear every Sunday, Sunday, Sunday 5. F/U in [address] Morrow for check on left MT obstruction and placement [place] [facility] MD - Cristhian farah Not available 04/11/2024 10:19:08 05/01/2024 [id number] 1. Left cerumenectomy and LMT removal performed in office today. Full risks, complications, and benefits of non-operative intervention have been thoroughly discussed. Understanding was expressed, informed consent given, and we will proceed with the discussed treatment plan. There were no questions for me at the end of the office visit. 2. Recommend LMT (more permanent tube) placement. Full risks, complications, and benefits of operative versus non-operative intervention have been thoroughly discussed. Understanding was expressed, informed consent given, and we will proceed with the discussed operative treatment plan. There were no questions for me at the end of the office visit. 3. F/U post operatively. [email or web address] Not available 05/01/2024 12:01:17 His left ear tub e was no longer functional and I removed cerumen and the extruded tube from his left ear canal. He has an obvious chronic serous otitis media and he has failed medical therapy and would benefit from repeat ear tube placement. After discussing options with him, he wants to proceed with long-term T-tube placement done under brief general anesthesia. Not available 05/01/2024 12:03:49 08/12/2024 [id number] 1. Audiogram obtained in office today. Results discussed with patient. 2. Recommend a hearing aid evaluation; pt is considering vocational rehab 3. F/u in 6 months [email or web address] Not available 08/12/2024 11:14:24 He is doing well after left ear tube placement and audiometric testing shows his hearing is back to baseline today. He is certainly a candidate for hearing aids in both ears and we talked about that today and he is going to apply for financial assistance through vocational rehabilitation. I will see him yearly but he will return sooner if necessary. Not available 08/12/2024 11:17:09 08/12/2024 [id number] Patient is excellent hearing aid candidate [email or web address] Not available 08/12/2024 10:50:07 Reason for Referral None Reported. Results Created Date Observation Date Name Description Value Unit Range Abnormal Flag Note LastModifiedBy Organization Detail LastModifiedTime 06/16/2006/02/2024 elect rosario agudelo am No observ ation record ed. [email or web address] Not Available 06/16 11:16:49 08/12/19 25 08/12/2024 audio gram No observ ation record ed. BARCODE Not Available 2024 16:01:09 Result Notes None recorded. Procedures Surgical History Date Name Laterality Status Provider Name and Address Organization Details Recorded Time 025 Tympanogram completed DIANELYS Yi, AUD [address] [place], [address], [facility] 08/12/2024 10:49:57 025 Audiogram completed DIANELYS Yi, AUD [address] [place], [address], [facility] 08/12/2024 10:49:32 024 Cerumen removal - Instruments, Unilateral completed Kristina Clinton [facility] 05/01/2024 12:01:43 024 Cerumen removal - Instruments, Unilateral completed SAULO CHAN APRN [address] [place], [address], [facility] 04/11/2024 10:17:38 024 Tympanogram completed DIANELYS Yi, AUD [address] [place], [address], [facility] 12/05/2023 14:29:13 024 Audiogram completed DIANELYSEDUAR MCINTOSH Kassidy, AUD [address] [place], [address], [facility] 12/05/2023 14:29:26 024 [facility] 16:07:06 024 Tympanostomy w/Tube, local [facility] 10/22/2023 16:10:37 024 Tympanogram completed SAL LAZO, MS [address] [place], [address], [facility] 09/24/2023 10:03:01 024 Audiogram completed SAL LAZO, MS [address] [place], [address], [facility] 09/24/2023 10:02:59 Imaging Results None recorded. Procedure Notes None recorded. Medical Equipment None Reported. Allergies No known drug allergies Medications Name Sig Start Date Stop Date Status Note LastModified by Organization Details LastModified Time prednisone 10 mg tablet 08/12 completed Not Available Not Available Not Available albuterol sulfate 2.5 mg/3 mL (0.083 %) solution for nebulizatio n INHALE THE CONTENTS OF 1 VIAL VIA NEBULIZER EVERY 6 HOURS NEEDED active Not Available Not Available No t Available atorvastati n 10 mg tablet TAKE 1 TABLET BY MOUTH EVERY EVENING active Not Available Not Available No t Available ofloxacin 0.3 % ear drops INSTILL 4-5 DROPS INTO AFFECTED EAR(S) BY OTIC ROUTE 2X DAILY FOR 7 DAYS active Not Available Not Available No t Available doxycycline monohydrate 100 mg capsule TAKE 1 CAPSULE BY MOUTH TWICE DAILY FOR 10 DAYS 05/01 completed Not Available Not Available Not Available nicotine 21 mg/24 hr daily transdermal patch APPLY 1 PATCH TRANSDERM ALLY ONCE DAILY active Not Available Not Available No t Available methylpredn isolone 4 mg tablets in a dose pack FOLLOW PACKAGE DIRECTION S 05/01 completed Not Available Not Available Not Available albuterol sulfate HFA 90 mcg/actuati on aerosol inhaler INHALE 2 PUFFS BY MOUTH FOUR TIMES DAILY active Not Available Not Available No t Available losartan 100 mg tablet TAKE 1 TABLET BY MOUTH EVERY DAY active Not Available Not Available No t Available fluticasone propionate 50 mcg/actuati on nasal spray,suspe nsion SHAKE LIQUID AND USE 1 SPRAY IN EACH NOSTRIL EVERY DAY 2024 active Not Available Not Available Not Avai lable ciprofloxac in 0.3 %-dexametha sone 0.1 % ear drops,suspe nsion SHAKE LIQUID AND INSTILL 4 DROPS TO AFFECTED EAR TWICE DAILY FOR 7 DAYS 05/01 completed Not Available Not Available Not Available omega-3 acid ethyl esters 1 gram capsule TAKE 2 CAPSULES BY MOUTH TWICE DAILY active Not Available Not Available No t Available atorvastati n 05/09 completed Not Available Not Available Not Available lamotrigine 05/01 completed Not Available Not Available Not Available prednisone 05/09 completed Not Available Not Available Not Available Zyrtec active Not Available Not Availa ble Not Available levocetiriz ine 5 mg tablet TAKE 1 TABLET BY MOUTH EVERY DAY active Not Available Not Available No t Available Wixela Inhub 500 mcg-50 mcg/dose powder for inhalation INHALE 1 PUFF BY MOUTH TWICE DAILY active Not Available Not Available No t Available Wixela Inhub 05/09 completed Not Available Not Available Not Available Vitals Date Recorded Body height Body mass index (BMI) Body weight Body temperature Provider Name and Address Organization Details Last Updated DateTime 08/12/2024 180.34 cm 32.8 kg/m2 555991.31 g 97.1 [degF] Carlene Aguirre [facility] 08/12/2024 10:26:52 Date Recorded Body height Body mass index (BMI) Body weight Body temperature Provider Name and Address Organization Details Last Updated DateTime 04/11/2024 180.34 cm 32.4 kg/m2 812981.53 g 97.3 [degF] Marianne Chisholm [facility] 04/11/2024 09:37:32 Date Recorded Body height Body mass index (BMI) Body weight Body temperature Heart rate Systolic And Diastolic Provider Name and Address Organization Details Last Updated DateTime 180.34 cm 32.1 kg/m2 905515. 25 g 98.5 [degF] 99 /min 110/85 mm[Hg] Charo Ledezma [facility] 11:45:25 Social History None recorded. Functional Status None recorded. Mental Status None recorded. Family History Nothing Reported. Medical History No medical history recorded. 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 2243537145 159428 H73.892 Bilateral tympanosclerosis 3885157902 1660271 H74.03 Allergic rhinitis 226431 04 J30.9 Asymmetric al sensorineural hearing loss 855106947 H90.5 Sensorineu ral hearing loss in right ear 7693652904 9100 H90.A21 09/24/23 - mild 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 5892808433 9107 H90.A32 09/24/23 - severe [id number] SAL LAZO [place] [facility] [address] [place] [address] 09/24/2023 10:02:09 09/24/2023 10:47:47 Mixed conductive and sensorineural hearing loss of left ear 0577296147 9107 H90.A32 [id number] SCOTT MORROW MD [place] [facility] [address] [place] [address] 10/22/2023 15:27:06 10/22/2023 16:26:11 Chronic serous otitis media of left ear 995313154 H65.22 Allergic rhinitis 350178 04 J30.9 Dysfunctio n of bilateral eustachian tubes 7672469248 378118 H69.93 Bilateral tympanosclerosis 6541956567 3751318 H74.03 Retraction of tympanic membrane 56940100 H73.892 - Left 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 3181711232 9107 H90.A32 09/24/23 - severe Sensorineu ral hearing loss in right ear 1381630843 9100 H90.A21 09/24/23 - mild [id number] SCOTT MORROW MD [place] [facility] [address] [place] [address] 12/05/2023 13:55:10 12/06/2023 05:16:35 Chronic serous otitis media of left ear 839135909 H65.22 Retraction of tympanic membrane 27560342 H73.892 - Left Dysfunctio n of bilateral eustachian tubes 7548565983 527540 H69.93 Bilateral tympanosclerosis 1137308677 4727547 H74.03 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 2617638703 9107 H90.A32 09/24/23 - severe Sensorineu ral hearing loss in right ear 5690746146 9100 H90.A21 09/24/23 - mild Allergic rhinitis 089404 04 J30.9 [id number] ALEXANDRIA VELAZQUEZ [place] [facility] [address] [place] [address] 12/05/2023 14:07:46 12/05/2023 14:30:12 Dysfunction of bilateral eustachian tubes 1401089566 743260 H69.93 Sensorineu ral hearing loss of bilateral ears 077916057 H90.3 [id number] SAULO CHAN APRN [place] [facility] [address] [place] [address] 04/11/2024 09:30:33 04/11/2024 11:29:35 Chronic serous otitis media of left ear 805364838 H65.22 Retraction of tympanic membrane 92678504 H73.892 - Left Dysfunctio n of bilateral eustachian tubes 3041256242 104221 H69.93 - hx of- LMT placement 10/2023 Dr. 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 - 04/11/24: left MT completely obstructed with firm cerumen; tube is starting to extrude from force of wax [id number] SCOTT MORROW MD [place] [facility] [address] [place] [address] 05/01/2024 10:55:04 05/01/2024 12:07:07 Chronic serous otitis media of left ear 266411439 H65.05/01/24 - serous otitis media visualized during exam Retraction of tympanic membrane 57420729 H73.892 - Left Dysfunctio n of bilateral eustachian tubes 5775177166 281046 H69.93 -10/22/23: LMT Tube Placement performed in office- 04/11/24: left MT completely obstructed with firm cerumen; tube is starting to extrude from force of wax- 05/01/24: Left MT half in / half out of the TM, plugged with ear wax; in office LMT removal Bilateral tympanosclerosis 3607915794 5380980 H74.03 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 6232357130 9107 H90.A32 09/24/23 - severe Sensorineu ral hearing loss in right ear 8678817536 9100 H90.A21 09/24/23 - mild Allergic rhinitis 545078 04 J30.9 Impacted c erumen in left ear 7214434672 966737 H61.04/11/24: left MT completely obstructed with firm cerumen; tube is starting to extrude from force of wax- 05/01/24: Left MT half in / half out of the TM, plugged with ear wax; in office LMT removal [id number] SCOTT MORROW MD SURGERY SCHEDULE [address] [place] [address] 06/20/2024 08:58:05 06/20/2024 09:00:37 [id number] MD JOAN ORTEGA [facility] [address] [place] [address] 08/12/2024 10:14:43 08/12/2024 11:15:46 Dysfunction of bilateral eustachian tubes 4073306921 747550 H69.93 -10/22/23: LMT Tube Placement performed in office- 04/11/24: left MT completely obstructed with firm cerumen; tube is starting to extrude from force of wax- 05/01/24: Left MT half in / half out of the TM, plugged with ear wax; in office LMT [email or web address]/ 29/24- LMT (T-tube) performed- left t-tube is in good position Impacted c erumen in left ear 6538594154 176012 H61.22 - 04/11/24: left MT completely obstructed with firm cerumen; tube is starting to extrude from force of wax- 05/01/24: Left MT half in / half out of the TM, plugged with ear wax; in office LMT removal Chronic se noe otitis media of left ear 911075291 H65.22 -05/01/24 - serous otitis media visualized during exam Retraction of tympanic membrane 28346458 H73.892 - Left Bilateral tympanosclerosis 7889481478 3811977 H74.03 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 7115029191 9107 H90.A32 09/24/23 - severe Sensorineu ral hearing loss in right ear 1014771678 9100 H90.A21 09/24/23 - mild Allergic rhinitis 328165 04 J30.9 [id number] ALEXANDRIA VELAZQUEZ [facility] [address] [place] [address] 08/12/2024 10:33:51 08/12/2024 10:50:26 Dysfunction of bilateral eustachian tubes 7857825995 923755 H69.93 Sensorineu ral hearing loss of bilateral ears 780773419 H90.3 Health Concerns Section Related Observation LastModified by Organization Detai ls LastModified Time None Recorded Concern Status LastModified by Organization Details LastModified Time None Recorded Advance Directives Directive None Recorded Payers Insurance Date Sequence Insurance Name Policy Number Policy [place] Covered Member ID [place] Member ID Guarantor Name 08/09/2024 1 [employer] [id number] 2 Andre Hatch [id number] Andre Hatch Notes Date Note Type Note Provider Name and Address Organization Details Recorded Time 04/11/2024 text/html Andre Hatch is seen today for evaluation of left aural fullness. He had a left myringotomy tube placed in 10/[address] Morrow and has done well overall until now. He says the last 2 weeks, the left ear has been full and clogged up. His hearing is muffled. He denies pain or discharge. He denies allergy or sinus congestion. He is on Levocetirizine and Flonase daily. SAULO CHAN APRN [address] [place], [address], [facility] 04/11/2024 10:19:28 05/01/2024 text/html ROS as noted in the HPI Andre visits us in office today to follow up on his ETD and left ear tube. LMT from 10/22/23. He was seen in the office by TIMOTHY Chan 04/11/24 for an ear infection/muffled hearing/aural fullness and was given a medrol dose pack. He was told to follow up with Dr. Morrow to check on left MT obstruction and placement. SCOTT MORROW MD [address] [place], [address], [facility] 05/01/2024 12:04:09 08/12/2024 text/html Andre presents in office today to follow up on s/p LMT (T-tube), performed on 06/20/24. The pt notes his left ear has returned to normal. The pt does feel that there may be fluid in his right ear. It does feel like a swimmer's ear to him. He denies right ear tube placement in adulthood but did have placement in youth. SCOTT MORROW MD [address] [place], [address], [facility] 08/12/2024 11:17:16
[2025-05-28 11:00] LABS: Hematocrit 49.4 % (42.0-52.0); Hemoglobin 17.3 g/dL (14.1-18.0); Immature Granulocytes % 0.1 %; Mean Corpuscular HGB Conc 35.0 g/dL (31.8-35.4); Mean Corpuscular Hemoglobin 35.1 pg (27.0-31.2); Mean Corpuscular Volume 100.2 fl (80-94); Nucleated Red Blood Cells % 0 %; Platelet Count 323 K/mm3 (142-424); Red Blood Count 4.93 M/mm3 (4.60-6.20); Red Cell Distribution Width-SD 47.5 fL; White Blood Count 6.9 K/mm3 (4.8-10.8)
[2025-05-28 11:15] LABS: Chloride 101 mmol/L (98-107)
[2025-05-28 11:16] LABS: Albumin Level 4.7 g/dl (3.5-5.0); Potassium 3.9 mmoL/L (3.5-5.1); Sodium 138 mmol/L (136-145)
[2025-05-28 11:18] LABS: Alanine Aminotransferase 36 U/L (12-78); Albumin/Globulin Ratio 2.5 (1.1-1.8); Anion Gap 11.9 mEq/L (5-15); Aspartate Amino Transferase 33 U/L (17-59); Blood Urea Nitrogen 13 mg/dl (9-20); Carbon Dioxide 29 mmol/L (22.0-30.0); Creatinine,Serum 1.00 mg/dl (0.66-1.25); Estimated Glomerular Filt Rate 76 ml/min (>60); GFR (African American) 92 ML/MIN (>60); Globulin 1.9 g/dL (1.3-3.2); Total Protein,Serum 6.6 g/dl (6.3-8.2)
[2025-05-28 11:19] LABS: Alkaline Phosphatase 67 U/L (38-126); Bilirubin,Total 1.3 mg/dl (0.2-1.3); Calcium 9.1 mg/dl (8.4-10.2); Cholesterol 185 mg/dl (140-200); Glucose 136 mg/dl (74-100); HDL Cholesterol 27 mg/dl (40-60); Triglycerides 381 mg/dl (30-150)
[2025-05-28 11:51] LABS: Hemoglobin A1C 5.6 % (4.0-6.0)
== END 2025-05-28 23:59 | disposition home or self-care (01) ==
LOC: LAB 10:18
PROVIDERS: PCP Internal Medicine; Visit Provider Internal Medicine
DX: Z00.00 Encounter for general adult medical examination without abnormal findings (principal); I10 Essential (primary) hypertension; E11.9 Type 2 diabetes mellitus without complications; E78.2 Mixed hyperlipidemia
CPT/HCPCS: 36415; 80053; 80061; 83036; 85025; G0103